=== PATIENT | female | born 1960 | race African-American/Black ===

== ENCOUNTER 2017-01-13 12:59 | Inpatient (IN) | payer MEDICARE ==
[2017-01-13] MEDS ORDERED: DUONEB 0.5 MG-3 MG/3 ML SOLN IH ONE (14:42)
[2017-01-13 15:32] LABS: Basophils % (Auto) 0.6 % (0.0-1.8); Eosinophils % (Auto) 4.2 % (0.0-4.3); Hematocrit 37.5 % (30.3-42.9); Hemoglobin 12.1 gm/dl (10.1-14.3); Mean Corpuscular HGB Conc 32 % (30-34); Mean Corpuscular Hemoglobin 27 pg (28-32); Mean Corpuscular Volume 84 fl (79-97); Platelet Count 154 K/mm3 (140-440); Red Blood Count 4.49 M/mm3 (3.65-5.03); Red Cell Distribution Width 14.7 % (13.2-15.2); White Blood Count 9.1 K/mm3 (4.5-11.0)
[2017-01-13 15:44] LABS: Anion Gap 17 mmol/L; BUN/Creatinine Ratio 23.33; Blood Urea Nitrogen 14 mg/dL (7-17); Calcium 9.1 mg/dL (8.4-10.2); Carbon Dioxide 27 mmol/L (22-30); Chloride 102.5 mmol/L (98-107); Glucose 118 mg/dL (65-100); Potassium 4.1 mmol/L (3.6-5.0); Sodium 142 mmol/L (137-145)
--- NOTE | 2017-01-13 15:57 | XRay Report ---
CHEST TWO VIEWS: 01/13/17 12:59:00 CLINICAL: Shortness of breath. COMPARISON: 04/23/16 FINDINGS: Cardiomegaly and central vascular congestion. Median sternotomy wires and a prosthetic mitral valve. Multilobar bilateral patchy airspace disease, greater on the right than the left. No pleural effusion. The bones and soft tissues are normal. IMPRESSION: Probable CHF with multilobar alveolar pulmonary edema.
[2017-01-13] MEDS ORDERED: PROVENTIL IH ONE (16:19)
[2017-01-13] MEDS ORDERED: ATROVENT IH ONE ×2 (17:41→17:45)
[2017-01-13] MEDS ORDERED: LASIX IV ONE (17:45)
[2017-01-13] MEDS ORDERED: MAGNESIUM SULFATE 2GM/50ML 2 GM/50 ML BAG IV ONE (17:45)
--- NOTE | 2017-01-13 17:51 | Emergency Department Report ---
ED Shortness of Breath HPI - General Chief Complaint: Dyspnea/Respdistress Stated Complaint: SOB Time Seen by Provider: 01/13/17 16:19 Source: patient, old records reviewed (echo 04/2016 EG 55-61%, diastolic dysfunction. Restricted mitral valve angioplasty with secondary severe mitral stenosis) Mode of arrival: Ambulatory Limitations: Language Barrier - History of Present Illness Initial Comments: 56 yo female with a past medical history of CHF, sleep apnea, hypertension, diabetes, status post mitral annular ring insertion presents to the hospital complains of shortness of breath 3 days. Patient recently returned from [place] via car ride yesterday. Patient has been experiencing wheezing, generalized chest tightness, dyspnea exertion, and cough Dr. of yellow/brown bloody sputum. Bilateral lower extremity edema reported without unilateral edema or arthritic calf tenderness. No reports of fever. 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 [facility] but patient has been evaluated by [facility] here in the past - Related Data Home Medications Medication Instructions Recorded Confirmed Last Taken Furosemide [Lasix TAB] 40 mg PO QDAY 07/19/13 02/21/15 1 Day Ago Potassium 10 meq PO QDAY 07/19/13 02/21/15 1 Day Ago Gabapentin 300 mg PO BID 02/21/15 02/21/15 1 Day Ago 10 units Lantus 10 units SQ QHS 02/21/15 02/21/15 1 Day Ago 10 Previous Rx's Medication Instructions Recorded Last Taken Type predniSONE [Deltasone] 20 mg PO QDAY #5 tab 11/27/15 Unknown Rx ALBUTEROL Inhaler [ProAir HFA 2 puff IH QID PRN #1 inhalation 03/31/16 Unknown Rx Inhaler] Albuterol *Only Ed* [Proventil 2.5 mg IH Q4H PRN #1 box 03/31/16 Unknown Rx 0.5% NEBS] predniSONE [Deltasone] 20 mg PO QDAY #5 tab 03/31/16 Unknown Rx Albuterol Sulfate [Proair 90 mcg IH Q4HR PRN #2 aer.pow.ba 04/23/16 Unknown Rx Respiclick] Benzonatate [Tessalon Perles] 100 mg PO Q8HR PRN #30 capsule 04/23/16 Unknown Rx Ipratropium [place] [Atrovent Hfa] 12.9 gm IH Q4HR #2 hfa.aer.ad 04/23/16 Unknown Rx predniSONE [Deltasone] 40 mg PO QDAY #8 tab 04/23/16 Unknown Rx Allergies Allergy/AdvReac Type Severity Reaction Status Date / Time seafood Allergy Rash Uncoded 04/23/16 07:03 ED Review of Systems ROS: Stated complaint: SOB Other details as noted in HPI Comment: All other systems reviewed and negative Other: Constitutional: No fevers chills Eyes: No eye pain visual changes ENT: No ear pain or throat pain Neck: Denies pain Respiratory: as per hpi Cardiovascular: Denies palpitations, syncope GI: Denies abdominal pain, nausea, vomiting, diarrhea : Denies dysuria Musculoskeletal: edema Skin: Denies rash, lesions, erythema Neurologic: Denies headache, numbness, weakness Psychiatric: Denies suicidal ideation, hallucinations ED Past Medical Hx - Past Medical History Hx Hypertension: Yes Hx Congestive Heart Failure: Yes Hx Diabetes: Yes Hx Psychiatric Treatment: Yes (PANIC/ANXIETY) Hx Asthma: Yes Additional medical history: Sleep apnea. mitral annular ring insertion 2011. echo 04/2016: EF 55-60%, diastolic dysfunction, severe left atrium dilatation Restricted mitral valve angioplasty with secondary severe mitral stenosis on - Surgical History Hx Open Heart Surgery: Yes Additional Surgical History: Patient states she had heart surgery but cannot explain exactly what type of surgery she had. She states they put something plastic inside of her called a "ling" but she does not know what it is - Social History Smoking Status: Never Smoker Substance Use Type: None - Medications Home Medications: Home Medications Medication Instructions Recorded Confirmed Last Taken Type Furosemide [Lasix TAB] 40 mg PO QDAY 07/19/13 02/21/15 1 Day Ago History Potassium 10 meq PO QDAY 07/19/13 02/21/15 1 Day Ago History Gabapentin 300 mg PO BID 02/21/15 02/21/15 1 Day Ago History 10 units Lantus 10 units SQ QHS 02/21/15 02/21/15 1 Day Ago History 10 predniSONE [Deltasone] 20 mg PO QDAY #5 tab 11/27/15 Unknown Rx ALBUTEROL Inhaler [ProAir HFA 2 puff IH QID PRN #1 inhalation 03/31/16 Unknown Rx Inhaler] Albuterol *Only Ed* [Proventil 2.5 mg IH Q4H PRN #1 box 03/31/16 Unknown Rx 0.5% NEBS] predniSONE [Deltasone] 20 mg PO QDAY #5 tab 03/31/16 Unknown Rx Albuterol Sulfate [Proair 90 mcg IH Q4HR PRN #2 aer.pow.ba 04/23/16 Unknown Rx Respiclick] Benzonatate [Tessalon Perles] 100 mg PO Q8HR PRN #30 capsule 04/23/16 Unknown Rx Ipratropium [place] [Atrovent Hfa] 12.9 gm IH Q4HR #2 hfa.aer.ad 04/23/16 Unknown Rx predniSONE [Deltasone] 40 mg PO QDAY #8 tab 04/23/16 Unknown Rx ED Physical Exam - General Limitations: Language Barrier - Other Other exam information: General: No limitations, patient is alert in no acute distress Head exam: Atraumatic, normocephalic Eyes exam: Normal appearance, pupils equal reactive to light, extraocular movements intact ENT: Moist mucous membrane Neck exam: Normal inspection, full range of motion, no meningismus nontender Respiratory exam: Significant bilateral expiratory wheezing, mild tachypnea, no sensory use, mild crackles Cardiovascular: Normal rate and rhythm, normal heart sounds Abdomen: Soft, nondistended, and nontender, with normal bowel sounds, no rebound, or guarding Extremity: Full range of motion, bilateral lower extremity edema 1+, no calf tendernes Back: Normal Inspection, full range of motion, no tenderness Neurologic: Alert, oriented x3, cranial nerves intact, no motor or sensory deficit Psychiatric: normal affect, normal mood Skin: Warm, dry, intact ED Course Vital Signs 01/13/17 01/13/17 01/13/17 14:39 15:07 15:20 Temperature 98.5 F Pulse Rate 84 Pulse Rate [ 84 Posterior Bilateral Throughout] Respiratory 22 Rate Respiratory 25 H 20 Rate [Posterior Bilateral Throughout] Blood Pressure 170/85 O2 Sat by Pulse 94 Oximetry 01/13/17 17:46 Temperature Pulse Rate Pulse Rate [ 78 Posterior Bilateral Throughout] Respiratory Rate Respiratory 20 Rate [Posterior Bilateral Throughout] Blood Pressure O2 Sat by Pulse Oximetry - Reevaluation(s) Reevaluation #1: 01/13/17 17:55 Patient will be treated for CHF and asthma exacerbation with Solu-Medrol, magnesium, Lasix, and eyes are treatments. Patient received a DuoNeb prior to my evaluation with minimal improvement ED Medical Decision Making - Lab Data Result diagrams: 01/13/17 15:01 01/13/17 15:01 Lab Results 01/13/17 01/13/17 01/13/17 Range/Units 15: 15: 15:01 WBC 9.1 (4.5-11.0) K/mm3 RBC 4.49 (3.65-5.03) M/mm3 Hgb 12.1 (10.1-14.3) gm/dl Hct 37.5 (30.3-42.9) % MCV 84 (79-97) fl MCH 27 L (28-32) pg MCHC 32 (30-34) % RDW 14.7 (13.2-15.2) % Plt Count 154 (140-440) K/mm3 Lymph % (Auto) 12.5 L (13.4-35.0) % [place] % (Auto) 5.9 (0.0-7.3) % Eos % (Auto) 4.2 (0.0-4.3) % Baso % (Auto) 0.6 (0.0-1.8) % Lymph # 1.1 L (1.2-5.4) K/mm3 [place] # 0.5 (0.0-0.8) K/mm3 Eos # 0.4 (0.0-0.4) K/mm3 Baso # 0.1 (0.0-0.1) K/mm3 Seg Neutrophils % 76.8 H (40.0-70.0) % Seg Neutrophils # 7.0 (1.8-7.7) K/mm3 Sodium 142 (137-145) mmol/L Potassium 4.1 (3.6-5.0) mmol/L Chloride 102.5 (98-107) mmol/L Carbon Dioxide 27 (22-30) mmol/L Anion Gap 17 mmol/L BUN 14 (7-17) mg/dL Creatinine 0.6 L (0.7-1.2) mg/dL Estimated GFR > 60 ml/min BUN/Creatinine Ratio 23.33 % Glucose 118 H (65-100) mg/dL Calcium 9.1 (8.4-10.2) mg/dL Troponin T < 0.010 (0.00-0.029) ng/mL NT-Pro-B Natriuret Pep 1119 H (0-900) pg/mL - EKG Data -: EKG Interpreted by Me (sinus with premature atrial complexes rate 75) - EKG Data When compared to previous EKG there are: no significant change (compared to 2015) - Radiology Data Radiology results: report reviewed (chest x-ray: Probable CHF with multilobar alveolar pulmonary edema) - Medical Decision Making Patient has wheezing and pulmonary edema. Will be treated for both CHF and asthma. Patient will require admission to the hospital for further cardiac workup and evaluation. Most recent echo 04/2016 showed a normal ejection fraction although diastolic dysfunction and severe mitral stenosis. BNP has also been normal in the past and elevated today. Findings today represent acute cardiac decompensation - Differential Diagnosis pneumonia, CHF, bronchitis, asthma, COPD, CHF, PE Critical Care Time: No Critical care attestation.: If time is entered above; I have spent that time in minutes in the direct care of this critically ill patient, excluding procedure time. ED Disposition Clinical Impression: Acute asthma exacerbation, Pulmonary edema, Hx of mitral valve repair, HTN ( hypertension), Diabetes Disposition: OP ADMITTED IP TO THIS HOSP Is pt being admited?: No Does the pt Need Aspirin: No Instructions: Pulmonary Edema (ED), Hypertension (ED), Diabetes Mellitus Type 2 in Adults (ED) Time of Disposition: 18:01 (Dr Jones/hosp)
--- NOTE | 2017-01-13 18:51 | History and Physical Report ---
History of Present Illness Chief complaint: Chest Pain History of present illness: 56 YO Female with HTN, CHF, DM, Asthma, HERMINIO, MVP S/P MVR, Anxiety presents to ED for evaluation. Pt states that she has experienced shortness of breath for the past 3 days with worsening symptoms over the past 12 hours as well as pain in her chest, 4/10, constant, worsened with deep breathing, nonradiating, not relieved with rest, or worsened with exertion, as well as productive cough. Pt acknowledges prolonged travel from [place] yesterday as well as bilateral leg swelling. Pt denies fever, chills, palpitations, NVD, syncope,hemoptysis, BRBPR , skin rashes, unintentional weight loss, night sweats, calf tenderness, or leg pain, individual/family history of DVT/PE. Past History Past Medical History: diabetes, heart failure, hypertension Past Surgical History: Other (MItral valve) Social history: , lives with family. denies: smoking, alcohol abuse, prescription drug abuse Family history: no significant family history (reviewed) Medications and Allergies Allergies Allergy/AdvReac Type Severity Reaction Status Date / Time seafood Allergy Rash Uncoded 04/23/16 07:03 Home Medications Medication Instructions Recorded Confirmed Last Taken Type Furosemide [Lasix TAB] 40 mg PO QDAY 07/19/13 01/14/17 1 Day Ago History Potassium 10 meq PO QDAY 07/19/13 01/14/17 1 Day Ago History Gabapentin 300 mg PO BID 02/21/15 01/14/17 1 Day Ago History Lantus 10 units SQ QHS 02/21/15 01/14/17 1 Day Ago History predniSONE [Deltasone] 20 mg PO QDAY #5 tab 11/27/15 01/14/17 1 Day Ago Rx ALBUTEROL Inhaler [ProAir HFA 2 puff IH QID PRN #1 inhalation 03/31/16 01/14/17 1 Day Ago Rx Inhaler] Albuterol *Only Ed* [Proventil 2.5 mg IH Q4H PRN #1 box 03/31/16 01/14/17 1 Day Ago Rx 0.5% NEBS] predniSONE [Deltasone] 20 mg PO QDAY #5 tab 03/31/16 01/14/17 1 Day Ago Rx Albuterol Sulfate [Proair 90 mcg IH Q4HR PRN #2 aer.pow.ba 04/23/16 01/14/17 1 Day Ago Rx Respiclick] Benzonatate [Tessalon Perles] 100 mg PO Q8HR PRN #30 capsule 04/23/16 01/14/17 1 Day Ago Rx Ipratropium [place] [Atrovent Hfa] 12.9 gm IH Q4HR #2 hfa.aer.ad 04/23/16 1 Day Ago Rx predniSONE [Deltasone] 40 mg PO QDAY #8 tab 04/23/16 01/14/17 1 Day Ago Rx Review of Systems All systems: negative Cardiovascular: chest pain Respiratory: cough, shortness of breath, pleurisy Exam - Constitutional Vitals: Temp Pulse Resp BP Pulse Ox 98.5 F 80 24 146/79 96 01/13/17 14:39 01/13/17 18:31 01/13/17 18:31 01/13/17 18:31 01/13/17 18:31 General appearance: Present: obese - EENT Eyes: Present: PERRL ENT: hearing intact, clear oral mucosa - Neck Neck: Present: supple, normal ROM - Respiratory Respiratory effort: normal Respiratory: bilateral: diminished - Cardiovascular Heart Sounds: Present: S1 & S2. Absent: rub, click - Extremities Extremities: pulses symmetrical, No edema Extremity abnormal: edema Peripheral Pulses: within normal limits - Abdominal General gastrointestinal: Present: soft, non-tender, non-distended, normal bowel sounds Female genitourinary: Present: normal - Integumentary Integumentary: Present: clear, warm, dry - Musculoskeletal Musculoskeletal: gait normal, strength equal bilaterally - Psychiatric Psychiatric: appropriate mood/affect, intact judgment & insight - Neurologic Neurologic: CNII-XII intact, moves all extremities Results - Labs CBC & Chem 7: 01/13/17 15:01 01/13/17 15:01 Labs: Abnormal lab results 01/13/17 01/13/17 01/13/17 Range/Units 15: 15: 15:01 MCH 27 L (28-32) pg Lymph % (Auto) 12.5 L (13.4-35.0) % Lymph # 1.1 L (1.2-5.4) K/mm3 Seg Neutrophils % 76.8 H (40.0-70.0) % Creatinine 0.6 L (0.7-1.2) mg/dL Glucose 118 H (65-100) mg/dL NT-Pro-B Natriuret Pep 1119 H (0-900) pg/mL Assessment and Plan - Patient Problems (1) ACS (acute coronary syndrome) Current Visit: Yes Status: Acute Plan to address problem: Chest Pain protocol: serial cardiac enzymes, ekg, telemetry, Cardiology consulted, (2) Accelerated hypertension Current Visit: Yes Status: Acute Plan to address problem: Monitor bp q shift, resume home medication. (3) CHF (congestive heart failure) Current Visit: Yes Status: Acute Qualifiers: Congestive heart failure type: C Congestive heart failure chronicity: C Plan to address problem: Cardilogy consulted, serial cardiac enzymes, ekg, telemetry supportive care. (4) Diabetes Current Visit: Yes Status: Acute Qualifiers: Diabetes mellitus type: D Diabetes mellitus complication status: D Diabetes mellitus complication detail: D Diabetic retinopathy severity: D Proliferative retinopathy type: P Diabetes mellitus macular edema: D Diabetes mellitus fdc insulin use: D Laterality: L Chronic kidney disease stage: C Plan to address problem: ADA diet, insulin, accu check (5) HERMINIO (obstructive sleep apnea) Current Visit: Yes Status: Acute Plan to address problem: CPAP as clinically indicated, (6) DVT prophylaxis Current Visit: Yes Status: Acute
--- NOTE | 2017-01-13 18:55 | Admit Criteria Form ---
Admission Criteria Documentation: CARDIOLOGY GRG Clinical Indications for Admission to Inpatient Care ( Place 'X' for any and all applicable criteria): Hospital admission is needed for appropriate care of the patient because of ANY ONE of the following (1): [ ] I. Hemodynamic instability as indicated by ALL of the following (1)(2)(3) (4)(5) [ ]a) Vital signs or other findings not as expected for chronic patient condition or baseline [ ]b) Instability indicated by ANY ONE of the following: [ ]i) Hypotension [ ]ii) Symptomatic Tachycardia unresponsive to treatment ( e.g., analgesia, fluids, sedation as indicated) [ ]iii) Inadequate perfusion indicated by ANY ONE of the following: [ ] 1) Lactic acidosis (> 2 mmol/L) [ ] 2) New abnormal capillary refill (> 3 seconds) [ ] 3) Reduced urine output [ ] 4) New altered mental status [ ]iv) Orthostatic vital sign changes unresponsive to treatment (e.g., fluids) [ ]v) IV inotropic or vasopressor medication required to maintain adequate blood pressure or perfusion [ ] II. Severe heart failure as indicated by ANY ONE of the following(17)(18) [ ]a) Respiratory distress [ ]b) Hypotension [ ]c) Anasarca (refractory to outpatient therapy) [ ]d) Cardiac arrhythmias of immediate concern [ ]e) Myocardial ischemia [ ] III. Cardiac arrhythmias or findings of immediate concern indicated by ANY ONE of the following (19)(20): [ ] a) Heart rhythms that are inherently dangerous or unstable indicated by ANY ONE of the following (21)(22)(23): [ ] i) Resuscitated ventricular fibrillation or cardiac arrest [ ] ii) Ventricular escape rhythm [ ] iii) Sustained ventricular tachycardia (30 seconds or more of ventricular rhythm at greater than 100 beats per minute) [ ] iv) Nonsustained ventricular tachycardia and ANY ONE of the following: [ ] 1) Suspected cardiac ischemia as cause or consequence of ventricular tachycardia [ ] 2) In setting of acute myocarditis [ ] b) Unstable cardiac conduction defects indicated by ANY ONE of the following(23)(24)(25) [ ] i) Type II second-degree atrioventricular block [ ]ii) Third-degree atrioventricular block [ ]iii) New-onset left bundle branch block with suspected myocardial ischemia [ ]c) Any heart rhythm and ANY ONE of the following (21)(22)(26)(27) (28) [ ] i) Continuous long-term ECG monitoring needed (e.g., initiation of drug requiring monitoring for more than 24 hours) [ ] ii) Patient has automatic implanted cardioverter defibrillator that is repeatedly firing, malfunctioning, or in need of immediate adjustment of settings beyond the scope of ambulatory or observation care [ ]d) Heart rhythms of concern due to ANY ONE of the following: [ ] i) Hypotension [ ] ii) Respiratory distress [ ] iii) Association with other significant symptoms (e.g., bradycardia with syncope or ongoing dizziness, supraventricular tachycardia with chest pain (14)(15)(17) [ ] IV. Monitoring for cardiac contusion beyond the scope of observation care needed [A](30)(31)(32) [ ] V. Surgical or device complication (e.g., valve replacement complication , pacemaker dysfunction) (35)(41)(44)(45)(46) [ ] . Inpatient palliative care needed. [B](49) Also use Inpatient Palliative Care Criteria [ ] VII. Nonbacterial thrombotic (marantic) endocarditis (36)(43)(47)(48) [X ] VIII. Cardiology condition, symptom, or finding for which emergency and observation care has failed or are not considered appropriate. [ ] IX. Acute valvular disease requiring inpatient as indicated by ANY ONE of the following (41) [ ]a) Acute valvular regurgitation (42) [ ]b) Noninfectious valvulitis (43) [ ]c) Obstructive valve thrombosis [ ]d) Paravalvular leak [ ]e) Other significant valvular disorder remaining after emergency or observation level of care (as appropriate) [ ]X. Pericardial disease requiring inpatient treatment as indicated by ANY ONE of the following (33)(34)(35)(36)(37) [ ]a) Suspected tamponade (38)(39)(40) [ ]b) Hemopericardium [ ]c) Other significant pericardial disorder remaining after emergency or observation level of care (as appropriate) [ ] XI. Cardiac ischemia beyond scope of emergency and observation care. [ ] XII. Hypertension requiring inpatient treatment as indicated by ANY ONE of the following (6)(7)(8) [ ]a) SBP greater than 220 mm Hg or DBP greater than 120 mmHg despite treatment [ ]b) SBP greater than 140 mm Hg or DBP greater than 100 mm Hg with evidence of acute end organ damage as indicated by ANY ONE of the following [ ] i) Altered mental status [ ] ii) Acute renal failure as indicated by new onset of ANY ONE of the following (9)(10)(11)(12)(13) [ ]1) 3-fold rise in serum creatinine from baseline [ ]2) Serum creatinine greater than 4 mg/dL ( 354 micromoles/L) with acute rise greater than 0.5 mg/dL (44.2 micromoles/L) [ ]3) Reduction of more than 75% in estimated glomerular filtration rate from baseline [ ]4) Estimated glomerular filtration rate less than 35 mL/min/1.73m2 (0.59 mL/sec/1.73m2) in child up to 18 years of age [ ]5) Cessation of urine output indicated by ALL of the following [ ]A. Adequate volume status [ ]B. Inadequate urine output as indicated by ANY ONE of the following [ ]a. Urine output less than 0.3 mL/kg/hr for 24 hours [ ]b. Anuria (urine output less than 0.1 mL/kg/hr) for 12 hours [ ] iii) Aortic dissection [ ] iv) Myocardial Ischemia [ ] v) Left ventricular heart failure [ ]vi) Retinal Hemorrhage [ ]vii) Other significant finding [ ]c) Hypertension in child requiring inpatient treatment as indicated by ALL of the following(14)(15)(16) [ ] i) Outpatient treatment not effective, not available, or not appropriate [ ]ii) SBP or DBP greater than 95th percentile for age [ ]iii) Evidence of acute end organ damage as indicated by ANY ONE of the following [ ]1) Altered mental status [ ]2) Acute renal failure as indicated by new onset of ANY ONE of the following(9)(10)(11)(12)(13) [ ]A. 3-fold rise in serum creatinine from baseline [ ]B. Serum creatinine greater than 4 mg/dL (354 micromoles/L) with acute rise greater than 0.5 mg/dL (44.2 micromoles/L) [ ]C. Reduction of more than 75% in estimated glomerular filtration rate from baseline [ ]D. Estimated glomerular filtration rate less than 35 mL/min/1.73m2 (0.59 mL/sec/1.73m2) in child up to 18 years of age [ ]E. Cessation of urine output indicated by ALL of the following [ ]a. Adequate volume status [ ]b. Inadequate urine output as indicated by ANY ONE of the following [ ]i) Urine output less than 0.3 mL/kg/hr for 24 hours [ ]ii) Anuria ( urine output less than 0.1 mL/kg/hr) for 12 hours [ ]3) Severe headache [ ]4) Visual disturbance [ ]5) Retinal hemorrhage [ ]6) Other significant finding [ ]XIII. Complications of transplanted heart indicated by ANY ONE of the following(61): [ ]a) Acute graft rejection requiring inpatient management (eg, intravenous immunosuppression)(62)(63) [ ]b) Acute graft heart failure indicated by ANY ONE of the following(64): [ ]i) Hemodynamic instability [ ]ii) Cardiac arrhythmias of immediate concern [ ]iii) Pulmonary edema that is very severe (eg, mechanical ventilation needed, imminent or likely, need for 100% oxygen to keep oxygen saturation above 90%) [ ]iv) Pulmonary edema that is persistent as indicated by ALL of the following: [ ]1) New need for oxygen therapy to keep oxygen saturation above 90% (or increased FiO2 need from baseline) [ ]2) Has not improved sufficiently with emergency department or observation care IV diuretics or other heart failure treatments[E] [ ]v) Altered mental status that is severe or persistent [ ]vi) Increased creatinine (new on laboratory test) with reduction of more than 50% in estimated glomerular filtration rate from baseline [ ]vii) Progressively (ongoing) rising creatinine (known from past laboratory test) with reduction of more than 25% in estimated glomerular filtration rate from baseline [ ]viii) Acute renal failure [ ]ix) Acute peripheral ischemia (eg, examination shows pulseless, cool, mottled, or cyanotic extremity) [ ]x) Pulmonary artery catheter monitoring needed [ ]xi) Other sign or symptom of heart failure requiring inpatient treatment (ie, too severe or not responsive to outpatient and observation care treatment) [ ]c) Infection requiring inpatient management (eg, Hemodynamic instability, need for intravenous antimicrobial treatment)(66)(67)(68)(69)(70) [ ]d) Cardiac allograft vasculopathy requiring inpatient management ( eg evidence of cardiac ischemia)(71) [ ]e) Other complication of transplanted heart (eg, stroke, severe pulmonary hypertension, severe valvular dysfunction) requiring inpatient management(72) The original [facility] content created by [facility] has been revised. The portions of the content which have been revised are identified through the use of italic text or in bold, and [facility] has neither reviewed nor approved the modified material. All other unmodified content is copyright [facility] [employer]. Please see references footnoted in the original [facility] [employer] edition 2016 Admission Criteria Met: Yes
[2017-01-13] MEDS ORDERED: DULCOLAX PR PRN (20:19)
[2017-01-13] MEDS ORDERED: MILK OF MAGNESIA PO PRN (20:19)
[2017-01-13] MEDS ORDERED: ZOFRAN IV PRN (20:19)
[2017-01-13] MEDS ORDERED: TYLENOL PO PRN (20:19)
[2017-01-13] MEDS ORDERED: DUONEB 0.5 MG-3 MG/3 ML SOLN IH PRN (20:19)
[2017-01-13] MEDS ORDERED: SODIUM CHLORIDE FLUSH SYRINGE 10 ML IV PRN (20:25)
[2017-01-13] MEDS ORDERED: PROVENTIL IH PRN (20:32)
[2017-01-13] MEDS ORDERED: NON-FORMULARY (Albuterol Sulfate [Proair Respiclick] 90 MCG) IH PRN (20:36)
[2017-01-13] MEDS ORDERED: TESSALON PERLES PO PRN (20:36)
[2017-01-13] MEDS ORDERED: PROAIR IH PRN (20:36)
[2017-01-13] MEDS ORDERED: NON-FORMULARY (Ipratropium Bromide [Atrovent Hfa] 12.9 GM) IH SCH (22:00)
[2017-01-13] MEDS ORDERED: LEVEMIR SUB-Q SCH (22:00)
[2017-01-13] MEDS ORDERED: LANTUS 10 UNIT SQ SCH (22:00)
[2017-01-13 22:05] LABS: Creatine Kinase MB 3.9 ng/mL (0.0-4.0)
[2017-01-13 22:06] LABS: Creatine Kinase 253 units/L (30-135)
[2017-01-14] MEDS: NEURONTIN PO SCH ×3 (00:26→23:43)
[2017-01-14 00:36] LABS: Creatine Kinase MB 3.4 ng/mL (0.0-4.0)
[2017-01-14 00:37] LABS: Creatine Kinase 228 units/L (30-135)
[2017-01-14] MEDS: LASIX IV SCH ×2 (05:29→17:31)
[2017-01-14 06:50] LABS: Creatine Kinase MB 3.7 ng/mL (0.0-4.0)
[2017-01-14 06:51] LABS: Creatine Kinase 200 units/L (30-135)
[2017-01-14] MEDS ORDERED: LEVEMIR SUB-Q SCH ×2 (09:21→22:00)
[2017-01-14] MEDS: ATROVENT IH SCH ×3 (09:22→20:17)
[2017-01-14] MEDS ORDERED: POTASSIUM 10 MEQ PO SCH (10:00)
[2017-01-14] MEDS: DELTASONE PO SCH (10:02)
[2017-01-14] MEDS: K-DUR PO SCH (10:03)
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
[2017-01-15] MEDS: LASIX IV SCH (06:25)
[2017-01-15 07:35] VITALS: BP 130/77
[2017-01-15] MEDS: ATROVENT IH SCH (09:55)
--- NOTE | 2017-01-15 10:59 | Progress Note ---
Assessment and Plan Shortness of breath, multifactorial CHF exacerbation - resolved with a preserved EF 55-60% on echo 04/2016 Prior MV repair at [place] 2011 ? restrictive annuloplasty on echo 2012 and 2015. [facility] 2011: normal coronaries Asthma Hypertension DM Recommendations: Awaiting repeat echo to evaluate mitral valve and rule out restrictive annuloplasty Clinically patient appears euvolemic Switch IV lasix to po Subjective Date of service: 01/15/17 Principal diagnosis: CHF Interval history: Patient is feeling much better this morning. Her shortness of breath has resolved. Objective Vital Signs Temp Pulse Pulse Pulse Pulse Pulse Pulse 01/15/17 09:56 01/15/17 09:55 70 70 01/15/17 07:34 97.4 F L 69 01/15/17 04:49 97.6 F 68 01/15/17 01:25 64 01/15/17 00:26 98.0 F 72 01/14/17 20:48 98.2 F 82 01/14/17 20:15 81 01/14/17 20:10 01/14/17 20:05 83 01/14/17 18:07 78 01/14/17 17:01 78 01/14/17 14:15 81 01/14/17 14:03 82 01/14/17 14:00 81 Resp Resp Resp Resp BP Pulse Ox 01/15/17 09:56 98 01/15/17 09:55 18 18 01/15/17 07:34 18 130/77 96 01/15/17 04:49 18 116/73 96 01/15/17 01:25 22 96 01/15/17 00:26 20 132/69 95 01/14/17 20:48 20 138/70 96 01/14/17 20:15 18 01/14/17 20:10 97 01/14/17 20:05 20 01/14/17 18:07 127/70 01/14/17 17:01 16 127/70 99 01/14/17 14:15 18 01/14/17 14:03 161/69 01/14/17 14:00 17 - Physical Examination HEENT: Positive: PERRL Neck: Positive: trachea midline Cardiac: Positive: Reg Rate and Rhythm Lungs: Positive: Normal Exam Neuro: Positive: Grossly Intact - EKG Sinus rhythms and dysrhythmias: sinus rhythm
[2017-01-15] MEDS: NEURONTIN PO SCH (11:00)
[2017-01-15] MEDS: DELTASONE PO SCH (11:01)
[2017-01-15] MEDS: K-DUR PO SCH (11:05)
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
--- NOTE | 2017-01-15 13:32 | Emergency Department Report ---
Entered by GHASSAN GIBBONS, acting as scribe for VILMA ORTIZ PA. Chief Complaint: Dyspnea/Respdistress Stated Complaint: SOB Time Seen by Provider: 01/13/17 16:09 - HPI History of Present Illness: 56 y/o female with Hx of asthma presents c/o SOB that started 2 days ago. Sx include chills, fever, productive cough, and coughing with blood. Meds include daily inhaler and albuterol. Pt notes seasonal allergies. - ROS Review of Systems: as noted in HPI - Exam Vital Signs: Vital Signs 01/13/17 01/13/17 14:39 15:07 Temperature 98.5 F Pulse Rate 84 Pulse Rate [ 84 Posterior Bilateral Throughout] Respiratory 22 Rate Respiratory 25 H Rate [Posterior Bilateral Throughout] Blood Pressure 170/85 O2 Sat by Pulse 94 Oximetry Physical Exam: General: 56-year-old female in no acute distress. Well-developed, well- nourished. CV: Regular rate and rhythm. No murmurs rubs or gallops. Lungs: inpspiratory and expiratory wheezing Abdomen: No tenderness to palpation. No guarding or rebound tenderness. Normal bowel sounds. Mini Neuro: Alert and oriented 3. MSE screening note: Focused history and physical exam performed. Due to findings the following was ordered: ED Medical Decision Making - Lab Data Result diagrams: 01/13/17 15:01 01/13/17 15:01 ED Disposition for MSE Condition: Stable This documentation as recorded by the scribe,GHASSAN GIBBONS,accurately reflects the service I personally performed and the decisions made by me,VILAM ORTIZ PA.
[2017-01-16] MEDS ORDERED: LASIX PO SCH (10:00)
== END 2017-01-15 13:42 | disposition home or self-care (01) | DRG 291 ==
LOC: ED 12:59 → 4A 20:19
PROVIDERS: ADMIT Internal Medicine; ATTEND Internal Medicine
DX: I11.0 Hypertensive heart disease with heart failure (principal); J96.20 Acute and chronic respiratory failure, unspecified whether with hypoxia or hypercapnia; I24.9 Acute ischemic heart disease, unspecified; J45.901 Unspecified asthma with (acute) exacerbation; J81.1 Chronic pulmonary edema; I50.33 Acute on chronic diastolic (congestive) heart failure; Z98.890 Other specified postprocedural states; E11.9 Type 2 diabetes mellitus without complications; G47.33 Obstructive sleep apnea (adult) (pediatric); I16.0 Hypertensive urgency; Z79.4 Long term (current) use of insulin; Z91.013 Allergy to seafood; F41.9 Anxiety disorder, unspecified; I05.2 Rheumatic mitral stenosis with insufficiency
CPT/HCPCS: 36415; 71020; 80048; 82550; 82553; 82962; 83880; 84484; 85025; 85379; 93005; 93010; 93306; 94640; 94660; 96365; 96375; J1818; J1940; J2930; J3475; J7512

== ENCOUNTER 2017-01-21 18:31 | Emergency (ER) | payer MEDICARE ==
[2017-01-21 18:39] VITALS: BP 129/59
[2017-01-21 19:20] LABS: Basophils % (Auto) 0.9 % (0.0-1.8); Eosinophils % (Auto) 6.7 % (0.0-4.3); Hematocrit 38.4 % (30.3-42.9); Hemoglobin 12.4 gm/dl (10.1-14.3); Mean Corpuscular HGB Conc 32 % (30-34); Mean Corpuscular Hemoglobin 27 pg (28-32); Mean Corpuscular Volume 84 fl (79-97); Platelet Count 179 K/mm3 (140-440); Red Blood Count 4.57 M/mm3 (3.65-5.03); Red Cell Distribution Width 14.6 % (13.2-15.2); White Blood Count 8.1 K/mm3 (4.5-11.0)
[2017-01-21 19:44] LABS: Anion Gap 15 mmol/L; Blood Urea Nitrogen 16 mg/dL (7-17); Calcium 9.1 mg/dL (8.4-10.2); Carbon Dioxide 28 mmol/L (22-30); Chloride 99.9 mmol/L (98-107); Glucose 292 mg/dL (65-100); Potassium 4.1 mmol/L (3.6-5.0); Sodium 139 mmol/L (137-145)
--- NOTE | 2017-01-22 07:29 | XRay Report ---
PA and lateral chest: Shortness of breath. The cardiac contour is slightly enlarged. There is a prosthetic mitral valve. There is mild vascular congestion slightly worse on the right than left. No infiltrates. The vascular pattern is slightly improved compared to the prior study of January 13. Impression: Mild CHF.
--- NOTE | 2017-01-23 19:57 | ED Elopement Review ---
ED Pt Elopement review - Results review Lab results: Laboratory Tests 01/21/17 01/21/17 01/21/17 18:50 18:50 18:56 WBC 8.1 RBC 4.57 Hgb 12.4 Hct 38.4 MCV 84 MCH 27 L MCHC 32 RDW 14.6 Plt Count 179 Lymph % (Auto) 21.3 [place] % (Auto) 6.8 Eos % (Auto) 6.7 H Baso % (Auto) 0.9 Lymph # 1.7 [place] # 0.5 Eos # 0.5 H Baso # 0.1 Seg Neutrophils % 64.3 Seg Neutrophils # 5.2 Potassium 4.1 Chloride 99.9 Carbon Dioxide 28 Anion Gap 15 BUN 16 Creatinine 0.8 Estimated GFR > 60 BUN/Creatinine Ratio 20.00 Glucose 292 H Calcium 9.1 Troponin T < 0.010 NT-Pro-B Natriuret Pep 368.1 - Call Back decision Pt Call Back Decision: No action required
== END 2017-01-22 03:04 | disposition left against medical advice (07) ==
LOC: ED 18:31
DX: R06.02 Shortness of breath (principal); Z53.21 Procedure and treatment not carried out due to patient leaving prior to being seen by health care provider
CPT/HCPCS: 36415; 71020; 80048; 83880; 84484; 85025; 93005; 93010

== ENCOUNTER 2017-01-27 07:36 | Day surgery (SDC) | payer MEDICARE ==
[2017-01-27] MEDS ORDERED: ECOTRIN PO ONE (08:03)
[2017-01-27 08:44] LABS: Basophils % (Auto) 0.8 % (0.0-1.8); Eosinophils % (Auto) 5.9 % (0.0-4.3); Hematocrit 37.2 % (30.3-42.9); Hemoglobin 12.2 gm/dl (10.1-14.3); Mean Corpuscular HGB Conc 33 % (30-34); Mean Corpuscular Hemoglobin 27 pg (28-32); Mean Corpuscular Volume 83 fl (79-97); Platelet Count 157 K/mm3 (140-440); Red Blood Count 4.49 M/mm3 (3.65-5.03); Red Cell Distribution Width 14.5 % (13.2-15.2); White Blood Count 7.8 K/mm3 (4.5-11.0)
[2017-01-27 08:59] LABS: INR 1.04 (0.87-1.13)
[2017-01-27] MEDS ORDERED: NACL 0.9% 500 ML 500 ML IV SCH (09:00)
[2017-01-27 09:05] LABS: Anion Gap 16 mmol/L; BUN/Creatinine Ratio 28.33; Blood Urea Nitrogen 17 mg/dL (7-17); Calcium 9.3 mg/dL (8.4-10.2); Carbon Dioxide 29 mmol/L (22-30); Glucose 116 mg/dL (65-100); Sodium 141 mmol/L (137-145)
[2017-01-27] MEDS ORDERED: BENADRYL IV ONE (09:30)
[2017-01-27] MEDS ORDERED: LASIX IV ONE (09:30)
[2017-01-27] MEDS ORDERED: HEPARIN/NS 5000 UNIT/500ML(CATH LAB) 1,500 ML IR ONE (11:06)
[2017-01-27] MEDS: VERSED ONE ×2 (11:33→11:52)
[2017-01-27] MEDS: XYLOCAINE 2% INFILTRATI ONE ×2 (11:33→11:53)
[2017-01-27] MEDS: SUBLIMAZE ONE ×2 (11:33→11:52)
--- NOTE | 2017-01-27 13:10 | Discharge Summary ---
Short Stay Discharge Plan Activity: advance as tolerated Weight Bearing Status: Partial Weight Bearing Diet: low fat, low cholesterol, low salt, diabetic Wound: keep clean and dry Special Instructions: no heavy lifting (3 days) Follow up with: ANDRÉS LARA MD [Primary Care Provider] - 7 Days JOSE CURTIS MD [Staff Physician] - 7 Days
[2017-01-27] MEDS ORDERED: NACL 0.9% 1000 ML 1,000 ML IV SCH (14:00)
--- NOTE | 2017-01-27 15:29 | Cardiac Catherization Report ---
CARDIAC CATHETERIZATION REPORT REASON FOR PROCEDURE: The patient is a 56-year-old woman who previously underwent mitral valve repair for mitral stenosis 4 years ago. She presents with symptoms of progressive heart failure, and echocardiographic evidence of mitral restenosis. The right and left heart catheterization was recommended. PROCEDURE PERFORMED: 1. Right and left heart catheterization. 2. [place] catheterization with hemodynamic assessments. PROCEDURE: The patient was prepped and draped in a sterile fashion after informed consent. The right femoral artery and vein were entered using Seldinger technique. A 6-[place] sheath in the artery and an 8 [place] sheath in the vein. [place]al catheterization was then performed, with the swan advanced to the pulmonary artery position. A pigtail catheter was then advanced into the left ventricle. Simultaneous left ventricular end diastolic and pulmonary artery wedge pressures were measured. Cardiac output was measured using the thermodilution method. The [place] catheter was then withdrawn and pressures were measured in the right heart on pullback. Left ventricular angiography was then performed, following which the pigtail catheter was withdrawn across the aortic valve and transaortic pressures were measured. Finally, left and right coronary angiography was performed using #4 right and left Aleks catheters. The catheters were then withdrawn, sheath removed, and hemostasis achieved, the arterial position using an Angio-Seal device. Manual compression was used over the venous site. The procedure was well tolerated by the patient and no complications. She was returned to the post-procedure unit in stable condition. FINDINGS: HEMODYNAMICS: The mean right atrial pressure was 15. Right ventricular pressure was 60/18. Pulmonary artery pressure was 60/30. The mean pulmonary artery wedge pressure was 30. Left ventricular end-diastolic pressure was 25. Cardiac output was 4.5 liters per minute by thermodilution. Ascending aortic pressure was 148/75. There was no significant pressure gradient on pullback across the aortic valve. MITRAL STENOSIS: Simultaneous left ventricular end diastolic and pulmonary artery wedge pressures revealed a mean transmitral gradient of 16 mmHg. Using the Gorlin equation, the mitral valve area was calculated at 0.96 square cm. CORONARY ANGIOGRAPHY: The left main, left anterior descending and diagonal branches were angiographically normal. The circumflex artery consists of single obtuse marginal branch, which was angiographically normal. This right coronary artery was a large dominant system, also angiographically normal. There was well preserved left ventricular systolic function, ejection fraction 50%-55%. CONCLUSION: 1. Moderate elevation of the right and left heart filling pressures, moderate to severe pulmonary hypertension. 2. Severe mitral stenosis with a transmitral mean gradient of 16, mitral valve area 0.96 square cm. 3. Angiographically normal coronary arteries. 4. Well preserved left ventricular systolic function, ejection fraction of 50% to 55%. RECOMMENDATIONS: Mitral valve replacement surgery is recommended. [facility]# [id number] CA/NTS
[2017-01-27 15:39] VITALS: BP 108/66
== END 2017-01-27 16:35 | disposition home or self-care (01) ==
LOC: OPU 07:36
PROVIDERS: ATTEND Internal Medicine Cardiovascular Disease
DX: I05.0 Rheumatic mitral stenosis (principal); I27.2 Other secondary pulmonary hypertension; D64.9 Anemia, unspecified; F41.9 Anxiety disorder, unspecified; M15.9 Polyosteoarthritis, unspecified; J45.909 Unspecified asthma, uncomplicated; I10 Essential (primary) hypertension; E11.9 Type 2 diabetes mellitus without complications; Z85.828 Personal history of other malignant neoplasm of skin; Z79.01 Long term (current) use of anticoagulants
CPT/HCPCS: 36415; 80048; 82962; 85025; 85610; 85730; 93005; 93010; 93460; 96374; 96375; C1760; C1894; J1200; J1644; J1720; J1940; J2250; J3010; J7040; Q9967

== ENCOUNTER 2017-02-07 08:36 | Emergency (ER) | payer MEDICARE ==
[2017-02-07] MEDS ORDERED: DUONEB 0.5 MG-3 MG/3 ML SOLN IH ONE ×2 (09:21→09:46)
[2017-02-07 09:32] LABS: Basophils % (Auto) 0.9 % (0.0-1.8); Eosinophils % (Auto) 9.6 % (0.0-4.3); Hematocrit 37.9 % (30.3-42.9); Hemoglobin 12.2 gm/dl (10.1-14.3); Mean Corpuscular HGB Conc 32 % (30-34); Mean Corpuscular Hemoglobin 27 pg (28-32); Mean Corpuscular Volume 85 fl (79-97); Platelet Count 190 K/mm3 (140-440); Red Blood Count 4.47 M/mm3 (3.65-5.03); Red Cell Distribution Width 14.4 % (13.2-15.2); White Blood Count 7.5 K/mm3 (4.5-11.0)
[2017-02-07 10:17] LABS: Anion Gap 19 mmol/L; BUN/Creatinine Ratio 26.66; Blood Urea Nitrogen 16 mg/dL (7-17); Calcium 9.3 mg/dL (8.4-10.2); Carbon Dioxide 26 mmol/L (22-30); Chloride 101.5 mmol/L (98-107); Glucose 189 mg/dL (65-100); Potassium 4.7 mmol/L (3.6-5.0); Sodium 142 mmol/L (137-145)
--- NOTE | 2017-02-07 10:34 | XRay Report ---
PA and lateral chest: SOB. The patient has had mitral valve replacement. The heart is slightly enlarged. No current vascular congestion identified. The vascular pattern appears improved compared to prior study of January 21. No infiltrates nor nodules identified. Impression: Interval resolution of CHF. No acute cardiopulmonary disease.
[2017-02-07] MEDS ORDERED: TYLENOL/CODEINE PO ONE (12:43)
--- NOTE | 2017-02-07 12:43 | Emergency Department Report ---
HPI - General Chief Complaint: Adult Asthma Time Seen by Provider: 02/07/17 12:38 - HPI HPI: She is a 56-year-old female who history of asthma who presents to ED complaining of coughing times.. Patient states coughing has gotten progressively worse since then. Patient states cough aggravated asthma attack and today she began wheezing and had some difficulty with breathing. Patient states she has albuterol inhaler and nebulizers at home. She denies chest pain, fever, nausea, vomiting, abdominal pain, dizziness, blurry vision, headache, shortness of breath ED Past Medical Hx - Past Medical History Previous Medical History?: Yes Hx Hypertension: Yes Hx Congestive Heart Failure: Yes Hx Diabetes: Yes Hx GERD: Yes Hx Psychiatric Treatment: Yes (PANIC/ANXIETY) Hx Asthma: Yes Hx COPD: No Additional medical history: Sleep apnea. mitral annular ring insertion 2011. echo 04/2016: EF 55-60%, diastolic dysfunction, severe left atrium dilatation Restricted mitral valve angioplasty with secondary severe mitral stenosis on - Surgical History Hx Open Heart Surgery: Yes Additional Surgical History: Patient states she had heart surgery but cannot explain exactly what type of surgery she had. She states they put something plastic inside of her called a "ling" but she does not know what it is - Social History Smoking Status: Never Smoker Substance Use Type: None - Medications Home Medications: Home Medications Medication Instructions Recorded Confirmed Last Taken Type Lantus 15 units SQ QHS 02/21/15 01/27/17 01/26/17 History 15units ALBUTEROL Inhaler [ProAir HFA 2 puff IH QID PRN #1 inhalation 03/31/16 01/27/17 01/27/17 08:15 Rx Inhaler] Albuterol Sulfate [Proair Hfa] 2 puff INHALATION Q4HR PRN 01/27/17 01/27/17 History Aspirin EC [Aspirin Enteric Coated 81 mg PO DAILY 01/27/17 01/27/17 01/27/17 History TAB] Fluticasone [Flonase] 1 spray NS QDAY 01/27/17 01/27/17 01/26/17 History Furosemide 40 mg PO DAILY 01/27/17 01/27/17 01/26/17 History Insulin Glargine,Hum.rec.anlog 25 units SQ QAM 01/27/17 01/27/1701/27/17 06:00 History [Lantus Solostar] 12.5units Lisinopril 10 mg PO DAILY 01/27/17 01/27/17 01/26/17 History Oxybutynin Chloride [Oxybutynin 5 mg PO BID 01/27/17 01/27/17 01/26/17 History Chloride ER] Paroxetine HCl 10 mg PO DAILY 01/27/17 01/27/17 01/26/17 History Potassium Chloride [Klor-Con M10] 10 meq PO DAILY 01/27/17 01/27/17 01/26/17 History Ranitidine HCl [Zantac 150 MG TAB] 150 mg PO BID 01/27/17 01/27/17 01/26/17 History glipiZIDE [Glipizide] 10 mg PO BID 01/27/17 01/27/17 01/26/17 History ALBUTEROL Inhaler [ProAir HFA 2 puff IH QID PRN #1 inhalation 02/07/17 Unknown Rx Inhaler] Acetaminophen/Codeine [Tylenol 1 tab PO Q6H PRN #14 tab 02/07/17 Unknown Rx /Codeine # 3 tab] Benzonatate [Tessalon Perles] 100 mg PO Q8HR #21 capsule 02/07/17 Unknown Rx Prednisone [predniSONE 10 mg 10 mg PO .TAPER #1 tab.ds.pk 02/07/17 Unknown Rx (6-Day Pack, 21 Tabs)] ED Review of Systems ROS: Stated complaint: SHARP PAIN ON BACK OF BOTH LEGS Other details as noted in HPI Constitutional: denies: chills, fever Eyes: denies: eye pain, eye discharge, vision change ENT: denies: ear pain, throat pain Respiratory: denies: cough, shortness of breath, wheezing Cardiovascular: denies: chest pain, palpitations Endocrine: no symptoms reported Gastrointestinal: denies: abdominal pain, nausea, diarrhea Genitourinary: denies: urgency, dysuria, discharge Musculoskeletal: denies: back pain, joint swelling, arthralgia Skin: denies: rash, lesions Neurological: denies: headache, weakness, paresthesias Psychiatric: denies: anxiety, depression Hematological/Lymphatic: denies: easy bleeding, easy bruising Physical Exam - Physical Exam Vital Signs: Vital Signs 02/07/17 09:02 Temperature 98.3 F Pulse Rate 79 Blood Pressure 158/94 O2 Sat by Pulse 100 Oximetry Physical Exam: GENERAL: Alert and oriented x3, no apparent distress, Normal Gait, atraumatic. HEAD: Head is normocephalic and a-traumatic. NOSE: Nose symetrical, Nontender,Nares appeared normal. MOUTH:Mouth is well hydrated and without lesions. Tonsils nonerythematous or swollen, Uvula midline, Tongue not elevated. Mucous membranes are moist. Posterior pharynx clear, no exudate or lesions. Patent airways. LUNGS: Symetrical with respiration, anterior and posterior wheezing bilat, no rales or crackles, adventitious lung sounds. No use of accessory muscles moving here appropriately. HEART: S1, S2 present, regular rate and rhythm without murmur, no rubs, no rales, no gallops. ABDOMEN: No organomegaly was noted,Positive bowel sounds, soft, and non- distended. . Nontender to palpation on all Quadrants, NO CVA tenderness. EXTREMITIES/MUSCULOSKELETAL: No cyanosis, clubbing, rash, lesions or edema. Full ROM bilaterally. NEUROLOGIC: The patient is cooperative with no focal neurologic deficits. Cranial nerves II through XII are grossly intact. Normal speech. SKIN: Warm and dry, No lesions, No ulceration or induration present. ED Course Vital Signs 02/07/17 09:02 Temperature 98.3 F Pulse Rate 79 Blood Pressure 158/94 O2 Sat by Pulse 100 Oximetry ED Medical Decision Making - Lab Data Result diagrams: 02/07/17 09:17 02/07/17 09:17 - Radiology Data Radiology results: report reviewed, image reviewed Fluoro Time In Minutes: PA and lateral chest: SOB. The patient has had mitral valve replacement. The heart is slightly enlarged. No current vascular congestion identified. The vascular pattern appears improved compared to prior study of January 21. No infiltrates nor nodules identified. Impression: Interval resolution of CHF. No acute cardiopulmonary disease. Transcribed By: BRUNO Dictated By: JOSEPH CEJA MD Electronically Authenticated By: JOSEPH CEJA MD Signed Date/Time: 02/07/17 1019 - Medical Decision Making 56-year-old female presents to ED with asthma exacerbation ED course: CBC, CMP within normal limits. Chest x-ray-see above Patient received DuoNeb respiratory treatment triage. Patient received Solu- Medrol and Tylenol with codeine in ED. Patient reports feeling much better. Discussed the patient to follow up with her primary care physician. Vital signs are normal patient is in no acute or respiratory distress Patient is alert and oriented 3 understands instructions regarding getting an compliance to follow-up Discussed with patient if new symptoms arise to return to ED if signs discuss the take medication as prescribed Critical care attestation.: If time is entered above; I have spent that time in minutes in the direct care of this critically ill patient, excluding procedure time. ED Disposition Clinical Impression: Asthma exacerbation Disposition: DISCHARGED TO HOME OR SELFCARE Is pt being admited?: No Does the pt Need Aspirin: No Condition: Stable Instructions: Asthma (ED) Prescriptions: Acetaminophen/Codeine [Tylenol /Codeine # 3 tab] 1 tab PO Q6H PRN #14 tab PRN Reason: Pain ALBUTEROL Inhaler [ProAir HFA Inhaler] 2 puff IH QID PRN #1 inhalation PRN Reason: Shortness Of Breath Benzonatate [Tessalon Perles] 100 mg PO Q8HR #21 capsule Prednisone [predniSONE 10 mg (6-Day Pack, 21 Tabs)] 10 mg PO .TAPER #1 tab.ds.pk Referrals: PRIMARY CARE, [Primary Care Provider] - 3-5 Days ELDER MERCADO MD [Referring] - 3-5 Days [facility] [Outside] - 3-5 Days [facility] [Outside] - 3-5 Days [facility] [Outside] - 3-5 Days Forms: Work/School Release Form(ED), Accompanied Note Time of Disposition: 13:27
[2017-02-07 14:22] VITALS: BP 145/75
== END 2017-02-07 13:45 | disposition home or self-care (01) ==
LOC: ED 08:36
DX: J45.901 Unspecified asthma with (acute) exacerbation (principal); I10 Essential (primary) hypertension; E11.9 Type 2 diabetes mellitus without complications; I50.9 Heart failure, unspecified; K21.9 Gastro-esophageal reflux disease without esophagitis; F41.9 Anxiety disorder, unspecified; Z79.82 Long term (current) use of aspirin; Z79.4 Long term (current) use of insulin
CPT/HCPCS: 36415; 71020; 80048; 84484; 85025; 93005; 93010; 96372; 99284; J2930

== ENCOUNTER 2017-09-26 15:07 | Emergency (ER) | payer MEDICARE ==
[2017-09-26 16:00] VITALS: BP 112/67
[2017-09-26] MEDS ORDERED: ASPIRIN PO ONE (16:00)
[2017-09-26 16:31] LABS: Basophils # (Auto) 0.1 K/mm3 (0.0-0.1); Basophils % (Auto) 0.9 % (0.0-1.8); Eosinophils # (Auto) 0.1 K/mm3 (0.0-0.4); Eosinophils % (Auto) 2.3 % (0.0-4.3); Hematocrit 41.2 % (30.3-42.9); Hemoglobin 13.2 gm/dl (10.1-14.3); Lymphocytes # (Auto) 1.8 K/mm3 (1.2-5.4); Lymphocytes % (Auto) 28.4 % (13.4-35.0); Mean Corpuscular HGB Conc 32 % (30-34); Mean Corpuscular Hemoglobin 26 pg (28-32); Mean Corpuscular Volume 81 fl (79-97); Monocytes # (Auto) 0.5 K/mm3 (0.0-0.8); Monocytes % (Auto) 7.5 % (0.0-7.3); Platelet Count 195 K/mm3 (140-440); Red Blood Count 5.08 M/mm3 (3.65-5.03); Red Cell Distribution Width 16.9 % (13.2-15.2)
[2017-09-26] MEDS ORDERED: ROBAXIN PO ONE (16:38)
[2017-09-26] MEDS ORDERED: TORADOL IV ONE (16:38)
[2017-09-26 16:53] LABS: BUN/Creatinine Ratio 28; Blood Urea Nitrogen 22 mg/dL (7-17); Calcium 8.5 mg/dL (8.4-10.2); Hemolysis Index 98
--- NOTE | 2017-09-26 19:15 | XRay Report ---
FINAL REPORT EXAM: XR CHEST 1V AP HISTORY: cp TECHNIQUE: upright single view chest PRIORS: None. FINDINGS: Cardiac and mediastinal contours are unremarkable. No focal pulmonary infiltrate is identified. No pleural fluid collection seen. Pulmonary vasculature is unremarkable. Sternotomy wires are noted. IMPRESSION: Negative single-view chest
[2017-09-26] MEDS ORDERED: NACL 0.9% 1000 ML 1,000 ML IV ONE (19:16)
--- NOTE | 2017-09-26 19:43 | Emergency Department Report ---
ED General Adult HPI - General Chief complaint: Chest Pain Stated complaint: UPPER BACK PAIN Time Seen by Provider: 09/26/17 16:32 Source: EMS Mode of arrival: Stretcher Limitations: No Limitations - History of Present Illness Initial comments: She is a 57-year-old [place] who is presenting with back pain. Patient states last night she was having intermittent crampy pain in her upper back and lasted several seconds and then will resolve but returned. Patient states that this will take her breath away she becomes short of breath. Patient had a CABG several months ago and is fearful that her heart is having issues. Patient denies chest pain currently. The patient also denies any diaphoresis nausea vomiting chest pain abdominal pain at this time. Location: back Radiation: non-radiation Severity scale (0 -10): 8 Quality: sharp Consistency: intermittent Improves with: none Worsens with: movement, rest Associated Symptoms: other (patient does state that she is anxious). denies: confusion, chest pain, cough, diaphoresis, fever/chills, headaches, malaise, nausea/vomiting, rash, syncope - Related Data Home Medications Medication Instructions Recorded Confirmed Last Taken Lantus 15 units SQ QHS 02/21/15 01/27/17 01/26/17 15units Albuterol Sulfate [Proair Hfa] 2 puff INHALATION Q4HR PRN 01/27/17 01/27/17 Aspirin EC [Aspirin Enteric Coated 81 mg PO DAILY 01/27/17 01/27/17 01/27/17 TAB] Fluticasone [Flonase] 1 spray NS QDAY 01/27/17 01/27/17 01/26/17 Furosemide 40 mg PO DAILY 01/27/17 01/27/17 01/26/17 Insulin Glargine,Hum.rec.anlog 25 units SQ QAM 01/27/17 01/27/17 01/27/17 06:00 [Lantus Solostar] 12.5units Lisinopril 10 mg PO DAILY 01/27/17 01/27/17 01/26/17 Oxybutynin Chloride [Oxybutynin 5 mg PO BID 01/27/17 01/27/17 01/26/17 Chloride ER] Paroxetine HCl 10 mg PO DAILY 01/27/17 01/27/17 01/26/17 Potassium Chloride [Klor-Con M10] 10 meq PO DAILY 01/27/17 01/27/17 01/26/17 Ranitidine HCl [Zantac 150 MG TAB] 150 mg PO BID 01/27/17 01/27/17 01/26/17 glipiZIDE [Glipizide] 10 mg PO BID 01/27/17 01/27/17 01/26/17 Previous Rx's Medication Instructions Recorded Last Taken Type ALBUTEROL Inhaler [ProAir HFA 2 puff IH QID PRN #1 inhalation 03/31/16 01/27/17 08:15 Rx Inhaler] ALBUTEROL Inhaler [ProAir HFA 2 puff IH QID PRN #1 inhalation 02/07/17 Unknown Rx Inhaler] Acetaminophen/Codeine [Tylenol 1 tab PO Q6H PRN #14 tab 02/07/17 Unknown Rx /Codeine # 3 tab] Benzonatate [Tessalon Perles] 100 mg PO Q8HR #21 capsule 02/07/17 Unknown Rx Prednisone [predniSONE 10 mg 10 mg PO .TAPER #1 tab.ds.pk 02/07/17 Unknown Rx (6-Day Pack, 21 Tabs)] methOCARBAMOL [Robaxin TAB] 500 mg PO Q6H PRN #12 tablet 09/26/17 Unknown Rx traMADol [Ultram] 50 mg PO Q6HR PRN #12 tablet 09/26/17 Unknown Rx Allergies Allergy/AdvReac Type Severity Reaction Status Date / Time seafood Allergy Rash Uncoded 02/07/17 09:01 ED Review of Systems ROS: Stated complaint: UPPER BACK PAIN Other details as noted in HPI Comment: Unobtainable due to pts medical conditions ED Past Medical Hx - Past Medical History Hx Hypertension: Yes Hx Congestive Heart Failure: Yes Hx Diabetes: Yes Hx GERD: Yes Hx Psychiatric Treatment: Yes (PANIC/ANXIETY) Hx Asthma: Yes Hx COPD: No Additional medical history: Sleep apnea. mitral annular ring insertion 2011. echo 04/2016: EF 55-60%, diastolic dysfunction, severe left atrium dilatation Restricted mitral valve angioplasty with secondary severe mitral stenosis on - Surgical History Hx Open Heart Surgery: Yes Additional Surgical History: Patient states she had heart surgery but cannot explain exactly what type of surgery she had. She states they put something plastic inside of her called a "ling" but she does not know what it is - Social History Smoking Status: Never Smoker - Medications Home Medications: Home Medications Medication Instructions Recorded Confirmed Last Taken Type Lantus 15 units SQ QHS 02/21/15 01/27/17 01/26/17 History 15units ALBUTEROL Inhaler [ProAir HFA 2 puff IH QID PRN #1 inhalation 03/31/16 01/27/17 01/27/17 08:15 Rx Inhaler] Albuterol Sulfate [Proair Hfa] 2 puff INHALATION Q4HR PRN 01/27/17 01/27/17 History Aspirin EC [Aspirin Enteric Coated 81 mg PO DAILY 01/27/17 01/27/17 01/27/17 History TAB] Fluticasone [Flonase] 1 spray NS QDAY 01/27/17 01/27/17 01/26/17 History Furosemide 40 mg PO DAILY 01/27/17 01/27/17 01/26/17 History Insulin Glargine,Hum.rec.anlog 25 units SQ QAM 01/27/17 01/27/17 01/27/17 06:00 History [Lantus Solostar] 12.5units Lisinopril 10 mg PO DAILY 01/27/17 01/27/17 01/26/17 History Oxybutynin Chloride [Oxybutynin 5 mg PO BID 01/27/17 01/27/17 01/26/17 History Chloride ER] Paroxetine HCl 10 mg PO DAILY 01/27/17 01/27/17 01/26/17 History Potassium Chloride [Klor-Con M10] 10 meq PO DAILY 01/27/17 01/27/17 01/26/17 History Ranitidine HCl [Zantac 150 MG TAB] 150 mg PO BID 01/27/17 01/27/17 01/26/17 History glipiZIDE [Glipizide] 10 mg PO BID 01/27/17 01/27/17 01/26/17 History ALBUTEROL Inhaler [ProAir HFA 2 puff IH QID PRN #1 inhalation 02/07/17 Unknown Rx Inhaler] Acetaminophen/Codeine [Tylenol 1 tab PO Q6H PRN #14 tab 02/07/17 Unknown Rx /Codeine # 3 tab] Benzonatate [Tessalon Perles] 100 mg PO Q8HR #21 capsule 02/07/17 Unknown Rx Prednisone [predniSONE 10 mg 10 mg PO .TAPER #1 tab.ds.pk 02/07/17 Unknown Rx (6-Day Pack, 21 Tabs)] methOCARBAMOL [Robaxin TAB] 500 mg PO Q6H PRN #12 tablet 09/26/17 Unknown Rx traMADol [Ultram] 50 mg PO Q6HR PRN #12 tablet 09/26/17 Unknown Rx ED Physical Exam - General Limitations: No Limitations General appearance: alert, in no apparent distress - Head Head exam: Present: atraumatic, normocephalic - Eye Eye exam: Present: normal appearance - ENT ENT exam: Present: mucous membranes moist - Neck Neck exam: Present: normal inspection - Respiratory Respiratory exam: Present: normal lung sounds bilaterally. Absent: respiratory distress - Cardiovascular Cardiovascular Exam: Present: regular rate, normal rhythm. Absent: systolic murmur, diastolic murmur, rubs, gallop - GI/Abdominal GI/Abdominal exam: Present: soft, normal bowel sounds - Extremities Exam Extremities exam: Present: normal inspection - Back Exam Back exam: Present: normal inspection - Neurological Exam Neurological exam: Present: alert, oriented X3 - Psychiatric Psychiatric exam: Present: normal affect, normal mood - Skin Skin exam: Present: warm, dry, intact, normal color. Absent: rash ED Course Vital Signs 09/26/17 09/26/17 09/26/17 15:32 15:45 15:54 Temperature 98.6 F Pulse Rate 70 72 72 Respiratory 12 15 Rate Blood Pressure 112/67 112/67 O2 Sat by Pulse 97 99 Oximetry 09/26/17 09/26/17 09/26/17 16:01 16:02 16:06 Temperature Pulse Rate 72 78 Respiratory 12 18 Rate Blood Pressure 112/67 O2 Sat by Pulse 95 96 Oximetry 09/26/17 09/26/17 09/26/17 16:15 16:31 16:45 Temperature Pulse Rate 71 72 74 Respiratory 17 21 22 Rate Blood Pressure 112/67 112/67 112/67 O2 Sat by Pulse 96 91 94 Oximetry 09/26/17 09/26/17 09/26/17 17:00 17:16 17:30 Temperature Pulse Rate 72 71 70 Respiratory 15 9 L 17 Rate Blood Pressure 112/67 112/67 O2 Sat by Pulse 99 95 94 Oximetry 09/26/17 09/26/17 09/26/17 17:46 18:00 18:16 Temperature Pulse Rate 70 70 70 Respiratory 19 19 15 Rate Blood Pressure 112/67 112/67 112/67 O2 Sat by Pulse 94 97 94 Oximetry 09/26/17 09/26/17 09/26/17 18:30 18:46 19:00 Temperature Pulse Rate 69 68 72 Respiratory 17 18 15 Rate Blood Pressure 112/67 112/67 112/67 O2 Sat by Pulse 96 97 97 Oximetry 09/26/17 09/26/17 19:16 19:30 Temperature Pulse Rate 70 71 Respiratory 19 12 Rate Blood Pressure 112/67 112/67 O2 Sat by Pulse 98 98 Oximetry ED Medical Decision Making - Lab Data Result diagrams: 09/26/17 16:15 09/26/17 16:15 - EKG Data -: EKG Interpreted by Wi - EKG Data Interpretation: other (EKG shows sinus rhythm rate of 71 axis is normal intervals and normal there is left ventricular hypertrophy is no ST segment elevations or depressions or T-wave inversions as interpreted as a normal EKG time of interpretation 1535) - Radiology Data Radiology results: report reviewed No acute process - Medical Decision Making Patient is a 57-year-old who is presenting with upper back pain is intermittent. Patient's description of her back pain is very similar to this back spasm. Patient does have elevated glucose and may be slightly dehydrated causing muscle spasm. Patient will be given IV fluids and be sent home with Robaxin. Critical care attestation.: If time is entered above; I have spent that time in minutes in the direct care of this critically ill patient, excluding procedure time. ED Disposition Clinical Impression: Back muscle spasm, Hyperglycemia Disposition: DC-01 TO HOME OR SELFCARE Is pt being admited?: No Does the pt Need Aspirin: No Condition: Good Prescriptions: methOCARBAMOL [Robaxin TAB] 500 mg PO Q6H PRN #12 tablet PRN Reason: Spasms traMADol [Ultram] 50 mg PO Q6HR PRN #12 tablet PRN Reason: Pain Referrals: PRIMARY CARE, [Primary Care Provider] - 3-5 Days
== END 2017-09-26 21:43 | disposition home or self-care (01) ==
LOC: ED 15:07
DX: M62.830 Muscle spasm of back (principal); E11.65 Type 2 diabetes mellitus with hyperglycemia; I10 Essential (primary) hypertension; K21.9 Gastro-esophageal reflux disease without esophagitis; F41.9 Anxiety disorder, unspecified; J45.909 Unspecified asthma, uncomplicated; Z79.82 Long term (current) use of aspirin; Z91.013 Allergy to seafood
CPT/HCPCS: 36415; 71045; 80048; 82962; 84484; 85025; 93005; 93010; 96361; 96374; 99285; J1885; J7030

== ENCOUNTER 2018-10-01 17:29 | Inpatient (IN) | payer MEDICARE ==
[2018-10-01 18:39] LABS: Basophils # (Auto) 0.1 K/mm3 (0.0-0.1); Basophils % (Auto) 0.7 % (0.0-1.8); Eosinophils # (Auto) 0.3 K/mm3 (0.0-0.4); Eosinophils % (Auto) 3.8 % (0.0-4.3); Hematocrit 37.6 % (30.3-42.9); Hemoglobin 12.1 gm/dl (10.1-14.3); Lymphocytes # (Auto) 2.1 K/mm3 (1.2-5.4); Lymphocytes % (Auto) 29.9 % (13.4-35.0); Mean Corpuscular HGB Conc 32 % (30-34); Mean Corpuscular Volume 82 fl (79-97); Monocytes # (Auto) 0.4 K/mm3 (0.0-0.8); Monocytes % (Auto) 5.7 % (0.0-7.3); Platelet Count 194 K/mm3 (140-440); Red Blood Count 4.58 M/mm3 (3.65-5.03); Red Cell Distribution Width 15.7 % (13.2-15.2)
[2018-10-01 18:44] LABS: Bilirubin,Urine NEG (Negative); Blood,Urine NEG (Negative); Color,Urine Straw (Yellow); Protein,Urine <15 mg/dL mg/dL (Negative); RBC,Urine < 1.0 /HPF (0.0-6.0); Urobilinogen,Urine < 2.0 mg/dL (<2.0)
--- NOTE | 2018-10-01 19:14 | Emergency Department Report ---
ED General Adult HPI - General Chief complaint: Chest Pain Stated complaint: BACK PAIN/SOB Time Seen by Provider: 10/01/18 19:00 Source: patient Mode of arrival: Ambulatory Limitations: No Limitations - History of Present Illness Initial comments: Patient is a 58-year-old female past HISTORY OF HEART FAILURE WHO PRESENTS WITH SHORTNESS OF BREATH AND BACK PAIN. SHE STATES THAT THIS IS GOING ON FOR LAST COUPLE DAYS HER BACK PAIN IS LOCATED IN THE MIDDLE OF HER BACK DOES NOT RADIATE DOWN HER LEGS. NOTHING THAT SHE DOES MAKES IT BETTER OR WORSE. The pain is a 5 out 10. She states that her shortness of breath is severe. - Related Data Home Medications Medication Instructions Recorded Confirmed Last Taken Albuterol Sulfate [Proair Hfa] 2 puff INHALATION Q4HR PRN 01/27/17 10/01/18 08/23/18 14:00 Lisinopril 10 mg PO DAILY 01/27/17 10/01/18 08/23/18 08:00 Oxybutynin Chloride [Oxybutynin 5 mg PO BID 01/27/17 10/01/18 08/23/18 08:00 Chloride ER] Insulin Glargine,Hum.rec.anlog 25 units SUB-Q BID 08/23/18 10/01/18 08/23/18 08:00 [Basaglar Kwikpen U-100] Potassium Chloride [Klor-Con 10] 10 meq PO BID 08/23/18 10/01/18 08/23/18 08:00 Sertraline HCl [Zoloft] 50 mg PO DAILY 08/23/18 10/01/18 08/23/18 08:00 Previous Rx's Medication Instructions Recorded Last Taken Type ALBUTEROL NEB's [Proventil 0.083% 2.5 mg IH Q4HRT PRN nebu 07/31/18 08/23/18 14:00 Rx NEBS] Furosemide [Lasix TAB] 40 mg PO DAILY #30 tablet 07/31/18 08/23/18 08:00 Rx HYDROcodone/APAP 5-325 [[place] 1 each PO Q6H PRN #60 tablet 07/31/18 08/18/18 13:00 Rx 5-325 mg TAB] Warfarin Sodium [Coumadin] 2.5 mg PO 6XW #1 tablet 07/31/18 08/23/18 14:00 Rx Warfarin [Coumadin] 5 mg PO QWEEK #1 tablet 07/31/18 08/16/18 08:00 Rx traMADol [Ultram 50 MG tab] 50 mg PO Q6HR PRN #60 tablet 07/31/18 08/22/18 18:00 Rx Pantoprazole [Protonix] 40 mg PO QDAY #30 tablet 08/25/18 Unknown Rx Allergies Allergy/AdvReac Type Severity Reaction Status Date / Time seafood Allergy Rash Uncoded 02/07/17 09:01 ED Review of Systems ROS: Stated complaint: BACK PAIN/SOB Other details as noted in HPI Constitutional: denies: chills, fever Eyes: denies: eye pain, eye discharge, vision change ENT: denies: ear pain, throat pain Respiratory: shortness of breath. denies: cough, wheezing Cardiovascular: denies: chest pain, palpitations Endocrine: no symptoms reported Gastrointestinal: denies: abdominal pain, nausea, diarrhea Genitourinary: denies: urgency, dysuria, discharge Musculoskeletal: denies: back pain, joint swelling, arthralgia Skin: denies: rash, lesions Neurological: denies: headache, weakness, paresthesias Psychiatric: denies: anxiety, depression Hematological/Lymphatic: denies: easy bleeding, easy bruising ED Past Medical Hx - Past Medical History Hx Hypertension: Yes Hx Congestive Heart Failure: Yes Hx Diabetes: Yes Hx GERD: Yes Hx Psychiatric Treatment: Yes (PANIC/ANXIETY) Hx Asthma: Yes Hx COPD: No Additional medical history: Sleep apnea. mitral annular ring insertion 11/15/2011. echo 04/2016: EF 55-60%, diastolic dysfunction, severe left atrium dilatation Restricted mitral valve angioplasty with secondary severe mitral stenosis on. pacemaker (07/31/18) - Surgical History Hx Open Heart Surgery: Yes (2009 and 2016) Hx Pacemaker: Yes (07/31/18) Additional Surgical History: plastic "ling" but she does not know what it is - Social History Smoking Status: Never Smoker Substance Use Type: None - Medications Home Medications: Home Medications Medication Instructions Recorded Confirmed Last Taken Type Albuterol Sulfate [Proair Hfa] 2 puff INHALATION Q4HR PRN 01/27/17 10/01/18 08/23/18 14:00 History Lisinopril 10 mg PO DAILY 01/27/17 10/01/18 08/23/18 08:00 History Oxybutynin Chloride [Oxybutynin 5 mg PO BID 01/27/17 10/01/18 08/23/18 08:00 History Chloride ER] ALBUTEROL NEB's [Proventil 0.083% 2.5 mg IH Q4HRT PRN nebu 07/31/18 10/01/18 08/23/18 14:00 Rx NEBS] Furosemide [Lasix TAB] 40 mg PO DAILY #30 tablet 07/31/18 10/01/18 08/23/18 08:00 Rx HYDROcodone/APAP 5-325 [[place] 1 each PO Q6H PRN #60 tablet 07/31/18 10/01/18 08/18/18 13:00 Rx 5-325 mg TAB] Warfarin Sodium [Coumadin] 2.5 mg PO 6XW #1 tablet 07/31/18 10/01/18 08/23/18 14:00 Rx Warfarin [Coumadin] 5 mg PO QWEEK #1 tablet 07/31/18 10/01/18 08/16/18 08:00 Rx traMADol [Ultram 50 MG tab] 50 mg PO Q6HR PRN #60 tablet 07/31/18 10/01/18 08/22/18 18:00 Rx Insulin Glargine,Hum.rec.anlog 25 units SUB-Q BID 08/23/18 10/01/18 08/23/18 08:00 History [Basaglar Kwikpen U-100] Potassium Chloride [Klor-Con 10] 10 meq PO BID 08/23/18 10/01/18 08/23/18 08:00 History Sertraline HCl [Zoloft] 50 mg PO DAILY 08/23/18 10/01/18 08/23/18 08:00 History Pantoprazole [Protonix] 40 mg PO QDAY #30 tablet 08/25/18 10/01/18 Unknown Rx ED Physical Exam - General Limitations: No Limitations General appearance: alert, in no apparent distress - Head Head exam: Present: atraumatic, normocephalic - Eye Eye exam: Present: normal appearance - ENT ENT exam: Present: mucous membranes moist - Neck Neck exam: Present: normal inspection - Respiratory Respiratory exam: Present: other (crackles ). Absent: respiratory distress - Cardiovascular Cardiovascular Exam: Present: regular rate, normal rhythm. Absent: systolic murmur, diastolic murmur, rubs, gallop - GI/Abdominal GI/Abdominal exam: Present: soft, normal bowel sounds - Extremities Exam Extremities exam: Present: normal inspection - Back Exam Back exam: Present: normal inspection - Neurological Exam Neurological exam: Present: alert, oriented X3 - Psychiatric Psychiatric exam: Present: normal affect, normal mood - Skin Skin exam: Present: warm, dry, intact, normal color. Absent: rash ED Course Vital Signs 10/01/18 10/01/18 10/01/18 18:06 19:20 20:00 Temperature 98 F 97.9 F Pulse Rate 74 69 70 Respiratory 16 16 10 L Rate Blood Pressure 159/76 140/79 Blood Pressure 143/74 [Right] O2 Sat by Pulse 100 99 97 Oximetry ED Medical Decision Making - Lab Data Result diagrams: 10/01/18 18:18 Lab Results 10/01/18 10/01/18 10/01/18 Range/Units 18:09 18:18 18:18 WBC 7.2 (4.5-11.0) K/mm3 RBC 4.58 (3.65-5.03) M/mm3 Hgb 12.1 (10.1-14.3) gm/dl Hct 37.6 (30.3-42.9) % MCV 82 (79-97) fl MCH 26 L (28-32) pg MCHC 32 (30-34) % RDW 15.7 H (13.2-15.2) % Plt Count 194 (140-440) K/mm3 Lymph % (Auto) 29.9 (13.4-35.0) % [place] % (Auto) 5.7 (0.0-7.3) % Eos % (Auto) 3.8 (0.0-4.3) % Baso % (Auto) 0.7 (0.0-1.8) % Lymph # 2.1 (1.2-5.4) K/mm3 [place] # 0.4 (0.0-0.8) K/mm3 Eos # 0.3 (0.0-0.4) K/mm3 Baso # 0.1 (0.0-0.1) K/mm3 Seg Neutrophils % 59.9 (40.0-70.0) % Seg Neutrophils # 4.3 (1.8-7.7) K/mm3 Total Bilirubin 0.20 (0.1-1.2) mg/dL Direct Bilirubin < 0.2 (0-0.2) mg/dL Indirect Bilirubin 0.0 mg/dL AST 19 (5-40) units/L ALT 16 (7-56) units/L Alkaline Phosphatase 97 (35-129) units/L Troponin T < 0.010 (0.00-0.029) ng/mL Total Protein 7.7 (6.3-8.2) g/dL Albumin 3.9 (3.9-5) g/dL Albumin/Globulin Ratio 1.0 % Urine Color Straw (Yellow) Urine Turbidity Clear (Clear) Urine pH 6.0 (5.0-7.0) Ur Specific [place] 1.006 (1.003-1.030) Urine Protein <15 mg/dl (Negative) mg/dL Urine Glucose (UA) Neg (Negative) mg/dL Urine Ketones Neg (Negative) mg/dL Urine Blood Neg (Negative) Urine Nitrite Neg (Negative) Urine Bilirubin Neg (Negative) Urine Urobilinogen < 2.0 (<2.0) mg/dL Ur Leukocyte Esterase Neg (Negative) Urine WBC (Auto) 1.0 (0.0-6.0) /HPF Urine RBC (Auto) < 1.0 (0.0-6.0) /HPF U Epithel Cells (Auto) < 1.0 (0-13.0) /HPF - EKG Data -: EKG Interpreted by Id - EKG Data 10/01/18 20:40 EKG shows normal sinus rhythm no ST segment elevation noted T-wave inversion normal axis. - Radiology Data Radiology results: report reviewed, image reviewed Chest x-ray: Shows enlarged cardio silhouette with AICD. - Medical Decision Making Cdx: CHF ddx: NSTEMI, PNA I will get cbc,bmp, troponin, IV pain medication, IV diuretics and will re- evalute the patient. Critical care attestation.: If time is entered above; I have spent that time in minutes in the direct care of this critically ill patient, excluding procedure time. ED Disposition Clinical Impression: SOB (shortness of breath) CHF (congestive heart failure) Qualifiers: Heart failure type: unspecified Heart failure chronicity: unspecified Qualified Code(s): I50.9 - Heart failure, unspecified Disposition: DC-09 OP ADMIT IP TO THIS HOSP Is pt being admited?: Yes Does the pt Need Aspirin: No Condition: Stable Referrals: CHRISTINA CASTILLO DO [Staff Physician] - 3-5 Days
[2018-10-01 19:19] LABS: Alanine Aminotransferase 16 units/L (7-56); Albumin 3.9 g/dL (3.9-5)
[2018-10-01 19:44] LABS: Bilirubin,Direct < 0.2 mg/dL (0-0.2)
[2018-10-01] MEDS ORDERED: MORPHINE IV ONE (19:50)
--- NOTE | 2018-10-01 19:51 | XRay Report ---
FINAL REPORT EXAM: XR CHEST ROUTINE 2V HISTORY: Shortness of breath TECHNIQUE: PA and lateral views of the chest Comparison: Chest x-ray dated August 23, 2018 FINDINGS: There is prominence of the interstitial markings in both lungs that appears to of increased in degree since the previous study. There appear to be patchy areas of pulmonary consolidation in the lung bases bilaterally. Atelectasis versus infiltrates. There is prominence of the pulmonary venous vasculature suggestive of pulmonary venous congestion. There is no evidence of pneumothorax or pleural fluid collection. The cardiac silhouette is enlarged with dual lead AICD and evidence of previous CABG procedure simila r in appearance to the previous study. The thoracic aorta and bony structures are not significantly changed. IMPRESSION: 1. Enlarged cardiac silhouette with AICD. 2. Prominence of the interstitial markings with evidence of pulmonary venous congestion which appears to have increased since the previous study and may represent changes of CHF. 3. Patchy areas of pulmonary consolidation in both lung bases. Atelectasis versus infiltrates.
[2018-10-01] MEDS ORDERED: LASIX IV ONE (19:58)
[2018-10-01] MEDS ORDERED: THALITONE PO ONE (20:58)
[2018-10-01 22:03] LABS: BUN/Creatinine Ratio 21; Blood Urea Nitrogen 15 mg/dL (7-17); Hemolysis Index 11
[2018-10-01] MEDS ORDERED: D50W (25GM) Syringe IV PRN (23:00)
[2018-10-01] MEDS ORDERED: TYLENOL PO PRN (23:04)
[2018-10-01] MEDS ORDERED: ZOFRAN IV PRN (23:04)
[2018-10-01] MEDS ORDERED: ULTRAM PO PRN (23:08)
--- NOTE | 2018-10-01 23:46 | Cat Scan Report ---
FINAL REPORT PROCEDURE: CT ANGIO CHEST TECHNIQUE: Computerized tomographic angiography of the chest was performed after the IV injection of iodinated nonionic contrast including image processing. The image data was postprocessed using 2-dim ensional multiplanar reformatted (MPR) and 3-dimensional (MIP and/or volume rendered) techniques. HISTORY: sob COMPARISON: No prior studies are available for comparison. FINDINGS: Heart and pericardium: The heart size is normal. No pericardial effusion. Multiple sternal wires are present. There enlargement of the right thyroid gland, nodularity in this region is noted. Further ev aluation with ultrasound may be of benefit. There is a battery in the left chest wall.. Thoracic aorta: Normal. Pulmonary vasculature: There is no evidence of pulmonary arterial emboli. Lymph nodes: No enlarged thoracic lymph nodes. Lungs: Normal. Pleural space: No effusion, thickening, or pneumothorax. Musculoskeletal structures: No significant abnormality. Upper abdominal structures: No significant abnormality. IMPRESSION: There is no evidence of pulmonary arterial emboli. The lungs are clear without infiltrate, effusion or pneumothorax. Enlarged right lobe of the thyroid gland with multiple nodules suspected. Further evaluation with ult rasound should be entertained.
[2018-10-02] MEDS ORDERED: ULTRAM ONE (01:13)
--- NOTE | 2018-10-02 06:16 | History and Physical Report ---
CHIEF COMPLAINT: Shortness of breath. OTHER COMPLAINT: Back pain. HISTORY OF PRESENTING ILLNESS: The patient is a 58-year-old female with history of CHF, presenting with shortness of breath going on for a few days. There is history of associated mid upper back pain. There is no history of pain in the anterior chest wall area. Also, the patient denies history of cough, denies history of fever or chills and say that the back pain is not affected by movement or by breathing. There is no history of nausea or vomiting and no history of ankle swelling or edema. PAST MEDICAL HISTORY: Pertinent for hypertension, congestive heart failure, diabetes mellitus, gastroesophageal reflux disease, panic attack and anxiety attack. There is past history of asthma, sleep apnea, mitral annular ring insertion. PAST SURGICAL HISTORY: Pertinent for pacemaker placement, open heart surgery. There is also past surgical history of mitral valve surgery. FAMILY HISTORY: Family history is noncontributory. SOCIAL HISTORY: The patient does not smoke, does not drink alcohol and does not use illicit drugs. MEDICATIONS: The patient is on albuterol inhaler 2 puffs every 4 hours as needed for shortness of breath, lisinopril 10 mg by mouth daily, oxybutynin chloride 5 mg by mouth twice daily, albuterol nebulizer 2.5 mg by inhalation every 4 hours, Lasix 40 mg by mouth daily, [place] 5/325 mg one by mouth every 6 hours as needed for pain, Coumadin 2.5 mg by mouth 6 times a week and 5 mg by mouth every week. Also, the patient is on tramadol 50 mg by mouth every 6 hours as needed for pain, and on insulin glargine 25 units subcutaneous b.i.d. Also, the patient is on potassium chloride ____ 10 mEq by mouth twice daily and Zoloft 50 mg by mouth daily as well as Protonix 40 mg by mouth daily. ALLERGIES: THE PATIENT IS ALLERGIC TO SEEFOOD. REVIEW OF SYSTEMS: CONSTITUTIONAL: There is no fever, no chills, no diaphoresis. HEENT: There is no headache or sore throat. CARDIOVASCULAR SYSTEM: There is no chest pain or orthopnea. RESPIRATORY SYSTEM: Shortness of breath present. No cough. GASTROINTESTINAL SYSTEM: There is no nausea, no vomiting, no abdominal pain, diarrhea or constipation. NEUROLOGICAL SYSTEM: There is no numbness, no dizziness, no altered mental status. MUSCULOSKELETAL SYSTEM: Pain in the upper mid back area noted. No joint swelling. DERMATOLOGICAL SYSTEM: Show no skin rash or itching. GENITOURINARY SYSTEM: Show no dysuria, hematuria, or flank pain. Rest of system review is normal. PHYSICAL EXAMINATION: GENERAL: At the time of exam, the patient was found to be alert, oriented x 3 and not in acute distress. VITAL SIGNS: Shows temperature of 98 degrees Fahrenheit, pulse of 74, respirations 16, blood pressure 159/76, O2 sat of 100% on room air. HEENT: Showed pupils to be equal, round, reactive to light and accommodating. Extraocular muscles are intact. NECK: Neck is supple with no JVD or carotid bruit. CARDIOVASCULAR SYSTEM: Showed normal first and second heart sounds with no gallops or murmur. RESPIRATORY SYSTEM: Showed good air entry on both sides of the lungs with no abnormal breath sounds. GASTROINTESTINAL SYSTEM: Show abdomen to be full, soft, nontender with no organomegaly or rigidity. NEUROLOGICAL: Neuro exam shows no focal deficit. MUSCULOSKELETAL SYSTEM: Show no joint swelling or tenderness. DERMATOLOGICAL SYSTEM: Show no skin rash. GENITOURINARY SYSTEM: Showing no costovertebral angle tenderness. PERTINENT LABORATORY DATA AND IMAGING STUDIES: The patient had chest x-ray done that shows enlarged cardiac silhouette with AICD in place. Also, the patient's chest x-ray shows prominence of interstitial marking with evidence of pulmonary venous congestion, which appears to have increased since the previous study. According to the radiologist, this represents changes of CHF. There is also finding of patchy areas of pulmonary consolidation in both lung bases, which could be interpreted as atelectasis versus infiltrate. The patient had CT angiogram of the chest done that shows no evidence of pulmonary artery embolism and also the CT angio showed that the lungs are clear without infiltrate, effusion or pneumothorax. There is finding of large right lobe of thyroid gland with multiple nodules suspected. The Radiology said further evaluation with ultrasound should be entertained. Lab results, the patient had CBC done that came back unremarkable. The patient's chemistry was unremarkable. Urinalysis came back unremarkable. Cardiac enzyme was unremarkable. DIAGNOSES: 1. Congestive heart failure exacerbation. 2. Thyroid nodule on CT angiogram of chest. PLAN OF ACTION: 1. The patient will be admitted to telemetry. 2. The patient will have cardiac enzymes involving troponin, total CK and CK-MB check q. 6 hours x 2 more levels. 3. The patient will be on IV Lasix 40 mg daily and will also be on nitroglycerin paste half inch to anterior chest wall q.i.d. 4. The patient will be on p.r.n. medications like Tylenol 650 mg by mouth every 4 hours for fever and headache and IV Zofran 4 mg every 8 hours for nausea and vomiting. 5. The patient will be on consistent carbohydrate low sodium diet. 6. The patient will be on Accu-Chek a.c. and at bedtime followed by low-dose sliding scale using regular insulin coverage. 7. The patient will have 2D echo done this morning because of exacerbation of congestive heart failure. 8. The patient will be on home medications as shown in the medication reconciliation section. ADDENDUM: The patient's thyroid function TSH will be checked in the blood and the patient will get thyroid ultrasound done after the blood test was having done. JOB# [id number] OCN/NTS
[2018-10-02] MEDS: NITRO-BID 2% TP SCH ×5 (06:21→17:40)
[2018-10-02] MEDS: NORCO 5/325 PO PRN ×3 (06:22→20:10)
[2018-10-02 07:04] LABS: Creatine Kinase MB 2.8 ng/mL (0.0-4.0)
[2018-10-02] MEDS: HumuLIN R SUB-Q SCH ×4 (08:13→21:41)
--- NOTE | 2018-10-02 09:37 | Consultation ---
Addendum entered and electronically signed by JOSE CURTIS MD 10/02/18 10:26: 58-year-old woman with a history of mitral stenosis, paroxysmal atrial fibrillat ion, status post posterior mitral valve replacement. She is also status post dual-chamber pacemaker. A cardiac catheterization a year and a half ago before her mitral valve operation demonstrated angiographically normal coronaries. There is a moderate severity nonischemic cardiomyopathy, ejection fraction was 35-40% on an echocardiogram done 2 months ago. She is on amiodarone 200 mg daily for suppression of atrial fibrillation. Patient presents to the hospital at this time with shortness of breath. On the chest x-ray, there is diffuse bilateral mild interstitial opacities, described as probable interstitial edema by the radiologist. Cardiology consultation was requested for "CHF". Recommendations: After optimal diuresis, I will recommend a repeat of chest x-ray. If the interstitial opacities persist, there is a secondary consideration for amiodarone pulmonary toxicity. I will consult a nonprofit fundraiser. Original Note: History of Present Illness Consult date: 10/02/18 Consult reason: congestive heart failure History of present illness: This is a 58 year old woman with a history of mitrial stenosis and underwent porcine mitral valve replacement in 2016. At the time of her mitral valve surgery a cardiac cath showed normal coronary arteries, LVEF 50-55%. Post operatively she developed paroxysmal atrial fibrillation and is on amiodarone and warfarin for therapy. An echocardiogram done July 2018 reports a well functioning bio-prosthetic mitral valve but a left ventricular systolic function mild to moderately decreased, EF 35-40%. Patient also has a history of complete heart block and has a dual chamber pacemaker. Patient presents to this hospital with complaints of shortness of breath. A chest x-ray reports cardiomegaly with interstitial edema. In addition, patient reports intermittent palpitations after taking amiodarone. There are no reports of chest pain and she has no lower extremity edema. Her EKG is benign. No arrhythmias seen on telemetry thus far. TSH is normal. INR result is pending. A cardiac consultation was requested for further evaluation. Medications and Allergies Allergies Allergy/AdvReac Type Severity Reaction Status Date / Time seafood Allergy Rash Uncoded 02/07/17 09:01 Home Medications Medication Instructions Recorded Confirmed Last Taken Type Albuterol Sulfate [Proair Hfa] 2 puff INHALATION Q4HR PRN 01/27/17 10/01/18 08/23/18 14:00 History Lisinopril 10 mg PO DAILY 01/27/17 10/01/18 08/23/18 08:00 History Oxybutynin Chloride [Oxybutynin 5 mg PO BID 01/27/17 10/01/18 08/23/18 08:00 History Chloride ER] ALBUTEROL NEB's [Proventil 0.083% 2.5 mg IH Q4HRT PRN nebu 07/31/18 10/01/18 08/23/18 14:00 Rx NEBS] Furosemide [Lasix TAB] 40 mg PO DAILY #30 tablet 07/31/18 10/01/18 08/23/18 08:00 Rx HYDROcodone/APAP 5-325 [[place] 1 each PO Q6H PRN #60 tablet 07/31/18 10/01/18 08/18/18 13:00 Rx 5-325 mg TAB] Warfarin Sodium [Coumadin] 2.5 mg PO 6XW #1 tablet 07/31/18 10/01/18 08/23/18 14:00 Rx Warfarin [Coumadin] 5 mg PO QWEEK #1 tablet 07/31/18 10/01/18 08/16/18 08:00 Rx traMADol [Ultram 50 MG tab] 50 mg PO Q6HR PRN #60 tablet 07/31/18 10/01/18 08/22/18 18:00 Rx Insulin Glargine,Hum.rec.anlog 25 units SUB-Q BID 08/23/18 10/01/18 08/23/18 08:00 History [Basaglar Kwikpen U-100] Potassium Chloride [Klor-Con 10] 10 meq PO BID 08/23/18 10/01/18 08/23/18 08:00 History Sertraline HCl [Zoloft] 50 mg PO DAILY 08/23/18 10/01/18 08/23/18 08:00 History Pantoprazole [Protonix] 40 mg PO QDAY #30 tablet 08/25/18 10/01/18 Unknown Rx Active Meds: Active Medications Acetaminophen (Tylenol) 650 mg PO Q4H PRN PRN Reason: Fever >101 Acetaminophen/Hydrocodone Bitart ([place] 5/325) 1 each PO Q6H PRN PRN Reason: Pain, Moderate (4-6) Last Admin: 10/02/18 06:22 Dose: 1 each Documented by: Albuterol (Proventil) 2.5 mg IH Q6HRT PRN PRN Reason: Shortness Of Breath Dextrose (D50w (25gm) Syringe) 50 ml IV PRN PRN PRN Reason: Hypoglycemia Furosemide (Lasix) 40 mg IV QDAY [facility] Heparin Sodium (Porcine) (Heparin) 5,000 unit SUB-Q Q12HR UMESH Insulin Human Regular (Humulin R) 0 units SUB-Q AC [facility]; Protocol Last Admin: 10/02/18 08:13 Dose: Not Given Documented by: Insulin Human Regular (Humulin R) 0 units SUB-Q QHS [facility]; Protocol Lisinopril (Zestril) 10 mg PO DAILY [facility] Nitroglycerin (Nitro-Bid 2%) 0.5 inch TP QIDNTG [facility]; Protocol Last Admin: 10/02/18 06:21 Dose: 0.5 inch Documented by: Ondansetron HCl (Zofran) 4 mg IV Q8H PRN PRN Reason: Nausea And Vomiting Oxybutynin Chloride (Ditropan Xl) 5 mg PO BID [facility] Pantoprazole Sodium (Protonix) 40 mg PO QDAY [facility] Potassium Chloride (K-Dur) 10 meq PO BID [facility] Sertraline HCl (Zoloft) 50 mg PO DAILY [facility] Tramadol HCl (Ultram) 50 mg PO Q6H PRN PRN Reason: Pain Last Admin: 10/02/18 01:11 Dose: 50 mg Documented by: Warfarin Sodium (Coumadin) 2.5 mg PO QPM@1700 [facility]; Protocol Physical Examination Vital Signs Temp Pulse Resp BP Pulse Ox 98 F 74 16 159/76 100 10/01/18 18:06 10/01/18 18:06 10/01/18 18:06 10/01/18 18:06 10/01/18 18:06 General appearance: no acute distress HEENT: Positive: PERRL Cardiac: Positive: Reg Rate and Rhythm Lungs: Positive: Decreased Breath Sounds Neuro: Positive: Grossly Intact Extremities: Absent: edema Results 10/01/18 18:18 10/01/18 18:18 Cardiac Enzymes 10/01/18 10/02/18 10/02/18 Range/Units 18:18 00:15 06:08 AST 19 (5-40) units/L CK-MB (CK-2) 3.0 2.8 (0.0-4.0) ng/mL CBC 10/01/18 Range/Units 18:18 WBC 7.2 (4.5-11.0) K/mm3 RBC 4.58 (3.65-5.03) M/mm3 Hgb 12.1 (10.1-14.3) gm/dl Hct 37.6 (30.3-42.9) % Plt Count 194 (140-440) K/mm3 Lymph # 2.1 (1.2-5.4) K/mm3 [place] # 0.4 (0.0-0.8) K/mm3 Eos # 0.3 (0.0-0.4) K/mm3 Baso # 0.1 (0.0-0.1) K/mm3 Comprehensive Metabolic Panel 10/01/18 10/01/18 Range/Units 18:18 18:18 Sodium 139 (137-145) mmol/L Potassium 3.7 (3.6-5.0) mmol/L Chloride 99.9 (98-107) mmol/L Carbon Dioxide 24 (22-30) mmol/L BUN 15 (7-17) mg/dL Creatinine 0.7 (0.7-1.2) mg/dL Glucose 97 (65-100) mg/dL Calcium 9.0 (8.4-10.2) mg/dL Direct Bilirubin < 0.2 (0-0.2) mg/dL Indirect Bilirubin 0.0 mg/dL AST 19 (5-40) units/L ALT 16 (7-56) units/L Alkaline Phosphatase 97 (35-129) units/L Total Protein 7.7 (6.3-8.2) g/dL Albumin 3.9 (3.9-5) g/dL Assessment and Plan Acute systolic heart failure Porcine Mitral valve replacement 02/2017 Paroxysmal Afib currently in sinus rhythm on warfarin for oral anticoagulation Hx of Complete heart block presence of DC pacemaker Hypertension Diabetes Echocardiogram 07/2018 reports a well functioning bio-prosthetic mitral valve. Left ventricular systolic function mild to moderately decreased, EF 35-40%. February 2017 cardiac cath showed normal coronary arteries, LVEF 50-55%. Recommendations: We will repeat a chest x-ray. Pulmonary consultation for evaluation of shortness of breath with abnormal CXR. Medical therapy for acute systolic heart failure and paroxysmal afib. We will hold amiodarone for now.
[2018-10-02] MEDS: PROTONIX PO SCH (09:47)
[2018-10-02] MEDS: ZESTRIL PO SCH (09:47)
[2018-10-02] MEDS: K-DUR PO SCH ×2 (09:47→21:37)
[2018-10-02] MEDS: DITROPAN XL PO SCH ×2 (09:47→21:34)
[2018-10-02] MEDS ORDERED: LASIX IV SCH (10:00)
--- NOTE | 2018-10-02 10:06 | Event Note ---
Date: 10/02/18 Patient is 58 yo with diabetes, hypertension, CHF. She presented with shortness of breath, diagnosed with CHF exacerbation. I have seen and examined her. Continue current management. daryl fonseca
--- NOTE | 2018-10-02 11:14 | XRay Report ---
ROUTINE CHEST, TWO VIEWS: HISTORY: Shortness of breath. No significant change is appreciated since 10/01/18. CABG changes and a 2-lead pacemaker device are again noted. Heart size and pulmonary vascularity are stable at the upper limits of normal. The lungs are clear. No pleural effusion or pneumothorax. IMPRESSION: No acute cardiopulmonary process is identified.
[2018-10-02] MEDS: HEPARIN SUB-Q SCH ×2 (12:45→21:34)
[2018-10-02 14:35] LABS: INR 1.96 (0.87-1.13)
[2018-10-02] MEDS: PROVENTIL IH PRN ×2 (14:35→20:42)
--- NOTE | 2018-10-02 15:01 | Consultation ---
History of Present Illness Consult date: 10/02/18 Requesting physician: JOSE CURTIS Reason for consult: dyspnea, abnormal CXR/CT History of present illness: 58 y/o, obese female admitted with back pain. Base of skull and lower back. patient and describe the pain as tight in nature. Per and patient, every time she has pain, makes it hard to breath. Per , and patient, steroids have been given for the pain in the past and it made everything better. Currently patient is on a 40% ventimask and does appear uncomfortable. Past History Past Medical History: other (asthma per patient and but only on albuterol therapy.) Past Surgical History: Other (OPEN HEART x2) Social history: Family history: no significant family history Medications and Allergies Allergies Allergy/AdvReac Type Severity Reaction Status Date / Time seafood Allergy Rash Uncoded 02/07/17 09:01 Home Medications Medication Instructions Recorded Confirmed Last Taken Type Albuterol Sulfate [Proair Hfa] 2 puff INHALATION Q4HR PRN 01/27/17 10/01/18 08/23/18 14:00 History Lisinopril 10 mg PO DAILY 01/27/17 10/01/18 08/23/18 08:00 History Oxybutynin Chloride [Oxybutynin 5 mg PO BID 01/27/17 10/01/18 08/23/18 08:00 History Chloride ER] ALBUTEROL NEB's [Proventil 0.083% 2.5 mg IH Q4HRT PRN nebu 07/31/18 10/01/18 08/23/18 14:00 Rx NEBS] Furosemide [Lasix TAB] 40 mg PO DAILY #30 tablet 07/31/18 10/01/18 08/23/18 08:00 Rx HYDROcodone/APAP 5-325 [Labadie 1 each PO Q6H PRN #60 tablet 07/31/18 10/01/18 08/18/18 13:00 Rx 5-325 mg TAB] Warfarin Sodium [Coumadin] 2.5 mg PO 6XW #1 tablet 07/31/18 10/01/18 08/23/18 14:00 Rx Warfarin [Coumadin] 5 mg PO QWEEK #1 tablet 07/31/18 10/01/18 08/16/18 08:00 Rx traMADol [Ultram 50 MG tab] 50 mg PO Q6HR PRN #60 tablet 07/31/18 10/01/18 08/22/18 18:00 Rx Insulin Glargine,Hum.rec.anlog 25 units SUB-Q BID 08/23/18 10/01/18 08/23/18 08:00 History [Basaglar Kwikpen U-100] Potassium Chloride [Klor-Con 10] 10 meq PO BID 08/23/18 10/01/18 08/23/18 08:00 History Sertraline HCl [Zoloft] 50 mg PO DAILY 08/23/18 10/01/18 08/23/18 08:00 History Pantoprazole [Protonix] 40 mg PO QDAY #30 tablet 08/25/18 10/01/18 Unknown Rx Active Meds: Active Medications Acetaminophen (Tylenol) 650 mg PO Q4H PRN PRN Reason: Fever >101 Acetaminophen/Hydrocodone Bitart (Labadie 5/325) 1 each PO Q6H PRN PRN Reason: Pain, Moderate (4-6) Last Admin: 10/02/18 14:22 Dose: 1 each Documented by: Albuterol (Proventil) 2.5 mg IH Q6HRT PRN PRN Reason: Shortness Of Breath Last Admin: 10/02/18 14:35 Dose: 2.5 mg Documented by: Dextrose (D50w (25gm) Syringe) 50 ml IV PRN PRN PRN Reason: Hypoglycemia Furosemide (Lasix) 40 mg IV 0600,1800 [facility] Heparin Sodium (Porcine) (Heparin) 5,000 unit SUB-Q Q12HR [facility] Last Admin: 10/02/18 12:45 Dose: Not Given Documented by: Insulin Human Regular (Humulin R) 0 units SUB-Q AC [facility]; Protocol Last Admin: 10/02/18 12:45 Dose: Not Given Documented by: Insulin Human Regular (Humulin R) 0 units SUB-Q QHS [facility]; Protocol Lisinopril (Zestril) 10 mg PO DAILY [facility] Last Admin: 10/02/18 09:47 Dose: 10 mg Documented by: Nitroglycerin (Nitro-Bid 2%) 0.5 inch TP QIDNTG [facility]; Protocol Last Admin: 10/02/18 09:47 Dose: 0.5 inch Documented by: Ondansetron HCl (Zofran) 4 mg IV Q8H PRN PRN Reason: Nausea And Vomiting Oxybutynin Chloride (Ditropan Xl) 5 mg PO BID [facility] Last Admin: 10/02/18 09:47 Dose: 5 mg Documented by: Pantoprazole Sodium (Protonix) 40 mg PO QDAY [facility] Last Admin: 10/02/18 09:47 Dose: 40 mg Documented by: Potassium Chloride (K-Dur) 10 meq PO BID [facility] Last Admin: 10/02/18 09:47 Dose: 10 meq Documented by: Sertraline HCl (Zoloft) 50 mg PO DAILY [facility] Tramadol HCl (Ultram) 50 mg PO Q6H PRN PRN Reason: Pain Last Admin: 10/02/18 01:11 Dose: 50 mg Documented by: Warfarin Sodium (Coumadin) 2.5 mg PO QPM@1700 [facility]; Protocol Review of Systems All systems: negative Physical Examination Vital signs: Vital Signs Temp Pulse Resp BP Pulse Ox 98 F 74 16 159/76 100 10/01/18 18:06 10/01/18 18:06 10/01/18 18:06 10/01/18 18:06 10/01/18 18:06 General appearance: no acute distress, alert, other (obese) Eyes: non-icteric ENT: oropharynx moist Neck: supple, other (limited range of motion secondary to pain) Ascultation: Bilateral: clear Percussion: Bilateral: not dull Tactile fremitus: Bilateral: normal Cardiovascular: regular rate and rhythm Gastrointestinal: normoactive bowel sounds, soft, non-tender Integumentary: normal Extremities: no cyanosis normal mental status, non-focal exam mood appropriate Results - Laboratory Findings CBC and BMP: 10/01/18 18:18 10/01/18 18:18 PT/INR, D-dimer PT 22.7 Sec. (12.2-14.9) H 10/02/18 13:16 INR 1.96 (0.87-1.13) H 10/02/18 13:16 Abnormal lab findings: Abnormal Labs 10/01/18 10/02/18 10/02/18 18:18 00:15 06:08 MCH 26 L RDW 15.7 H PT INR POC Glucose Total Creatine Kinase 185 H 165 H 10/02/18 10/02/18 10/02/18 07:16 13:16 13:51 MCH RDW PT 22.7 H INR 1.96 H POC Glucose 52 L 155 H Total Creatine Kinase - Diagnostic Findings Chest x-ray: image reviewed (Cardiomegaly with Device in left chest and left ventricle (ICD vs PAcemaker)) CT scan - chest: image reviewed (no evidence of acute lung disease) Assessment and Plan 58 y/o, obese female with shortness of breath, but with clear CXR. 1. Consult was for abnormal CXR, no abnormalites are noted in the lung parenchyma and this is confirmed by CT. 2. Per patient suffers from asthma. Will place on Budesonide BID and continue PRN albuterol nebs. Will also give Prednisone 60 daily vs Solumedrol, 60 IV daily. 3. All others per primary team.
[2018-10-02] MEDS: ZOLOFT PO SCH (15:09)
[2018-10-02] MEDS: LASIX IV SCH (17:36)
[2018-10-02] MEDS: SOLU-Medrol IV SCH (17:38)
[2018-10-02] MEDS: COUMADIN PO SCH (17:40)
[2018-10-02] MEDS: PULMICORT IH SCH (20:42)
[2018-10-02] MEDS: COLACE PO SCH (21:34)
[2018-10-02] MEDS: DULCOLAX PO PRN (21:42)
[2018-10-02] MEDS ORDERED: NACL 0.9% 1000 ML 1,000 ML IV ONE (22:00)
[2018-10-03] MEDS: LASIX IV SCH (06:17)
[2018-10-03] MEDS: NITRO-BID 2% TP SCH ×2 (06:17→09:25)
[2018-10-03 06:48] LABS: INR 1.97 (0.87-1.13)
[2018-10-03] MEDS: PULMICORT IH SCH ×2 (08:00→20:31)
[2018-10-03] MEDS: PROVENTIL IH PRN (08:00)
[2018-10-03] MEDS: HumuLIN R SUB-Q SCH ×4 (09:19→21:39)
[2018-10-03] MEDS: HEPARIN SUB-Q SCH ×2 (09:20→21:38)
[2018-10-03] MEDS: DITROPAN XL PO SCH ×2 (09:20→21:39)
[2018-10-03] MEDS: ZESTRIL PO SCH (09:20)
[2018-10-03] MEDS: PROTONIX PO SCH (09:20)
[2018-10-03] MEDS: K-DUR PO SCH ×2 (09:20→21:40)
[2018-10-03] MEDS: COLACE PO SCH ×2 (09:20→21:39)
[2018-10-03] MEDS: SOLU-Medrol IV SCH (09:23)
[2018-10-03] MEDS: ZOLOFT PO SCH (09:24)
--- NOTE | 2018-10-03 09:57 | Progress Note ---
Assessment and Plan Neck tightness and headache CTA chest pertinent for enlarge right thyroid nodule Porcine Mitral valve replacement 02/2017 Paroxysmal Afib currently in sinus rhythm on warfarin for oral anticoagulation Hx of Complete heart block presence of DC pacemaker Hypertension Diabetes Echocardiogram 07/2018 reports a well functioning bio-prosthetic mitral valve. Left ventricular systolic function mild to moderately decreased, EF 35-40%. February 2017 cardiac cath showed normal coronary arteries, LVEF 50-55%. Recommendations: No further cardiac work-up is needed Cervical spine X-ray or CT is warranted to further evaluate her neck tightness and headache Discontinue IV lasix and resume po lasix Continue lisinopril Start low dose toprol XL since amiodarone was discontinued Subjective Date of service: 10/03/18 Principal diagnosis: Neck tightness and headache Interval history: Patient denies chest pain or shortness of breath No events on tele Her main complaint is neck tightness and headache Objective Vital Signs Temp Pulse Pulse Pulse Resp Resp Resp 10/03/18 08:31 97.9 F 69 20 10/03/18 08:15 60 20 10/03/18 08:00 69 20 10/03/18 06:17 60 10/03/18 04:28 97.2 F L 60 16 10/02/18 23:22 97.5 F L 64 16 10/02/18 21:10 20 10/02/18 20:55 72 20 10/02/18 20:43 10/02/18 20:42 67 20 10/02/18 20:13 20 10/02/18 20:10 70 20 10/02/18 19:30 97.4 F L 66 16 10/02/18 19:15 73 10/02/18 17:14 97.9 F 70 16 10/02/18 14:45 92 H 20 10/02/18 14:35 86 20 10/02/18 13:50 97.4 F L 66 20 10/02/18 10:15 10/02/18 10:00 BP Pulse Ox 10/03/18 08:31 135/68 100 10/03/18 08:15 10/03/18 08:00 100 10/03/18 06:17 94/39 10/03/18 04:28 94/39 99 10/02/18 23:22 96/39 97 10/02/18 21:10 10/02/18 20:55 10/02/18 20:43 100 10/02/18 20:42 10/02/18 20:13 10/02/18 20:10 100 10/02/18 19:30 88/41 100 10/02/18 19:15 10/02/18 17:14 93/63 97 10/02/18 14:45 10/02/18 14:35 10/02/18 13:50 98/61 100 10/02/18 10:15 100 10/02/18 10:00 95 - Physical Examination HEENT: Positive: PERRL Neck: Positive: neck supple Cardiac: Positive: Reg Rate and Rhythm Lungs: Positive: clear to auscultation Neuro: Positive: Grossly Intact Extremities: Absent: edema - Labs and Meds Coagulation 10/02/18 10/03/18 Range/Units 13:16 05:49 PT 22.7 H 22.8 H (12.2-14.9) Sec. INR 1.96 H 1.97 H (0.87-1.13)
[2018-10-03] MEDS: TOPROL XL PO SCH (10:24)
[2018-10-03] MEDS: LASIX PO SCH (10:25)
[2018-10-03] MEDS: DULCOLAX PO PRN (10:25)
--- NOTE | 2018-10-03 11:01 | XRay Report ---
FINAL REPORT EXAM: XR SPINE CERVICAL 2-3V HISTORY: Neck pain COMPARISON: None. TECHNIQUE: Three views cervical spine FINDINGS: There is normal alignment without acute fracture or dislocation. The vertebral body heights are maint ained. There is mild diffuse intervertebral disc space narrowing with anterior and uncovertebral oste ophyte formation. The prevertebral soft tissues are normal. The airway is patent. IMPRESSION: Degenerative changes of the cervical spine without acute fracture or dislocation.
--- NOTE | 2018-10-03 13:59 | Progress Note ---
Assessment and Plan 58 y/o, obese female with shortness of breath, but with clear CXR. 1. Will change to PO prednisone 60 daily. Patient will need long taper. 60x4, 40x4, 20x4, 10x4 then stop. 2. Continue BID pulmicort and albuterol treatments 3. All others per primary team. 4. Wean FiO2 for sats >88% 5. Will need follow up in office with full PFT, six minute walk and baseline 2 view CXR Subjective Date of service: 10/03/18 Principal diagnosis: Neck tightness and headache Interval history: Has had improvement with steroids. Still on oxygen. Cardiology ordered neck films. and other family at bedside. Objective Vital Signs - 12hr 10/03/18 10/03/18 10/03/18 04:28 06:17 08:00 Temperature 97.2 F L Pulse Rate 60 60 Pulse Rate [ 69 Anterior Bilateral Throughout] Pulse Rate [ 70 Apical] Respiratory 16 20 Rate Respiratory 20 Rate [Anterior Bilateral Throughout] Blood Pressure 94/39 94/39 O2 Sat by Pulse 99 100 Oximetry 10/03/18 10/03/18 08:15 08:31 Temperature 97.9 F Pulse Rate 69 Pulse Rate [ 60 Anterior Bilateral Throughout] Pulse Rate [ Apical] Respiratory 20 Rate Respiratory 20 Rate [Anterior Bilateral Throughout] Blood Pressure 135/68 O2 Sat by Pulse 100 Oximetry Constitutional: no acute distress, alert, other (obese) Eyes: non-icteric ENT: oropharynx moist Neck: supple, other (limited range of motion secondary to pain) Ascultation: Bilateral: clear Percussion: Bilateral: not dull Tactile fremitus: Bilateral: normal Cardiovascular: regular rate and rhythm Gastrointestinal: normoactive bowel sounds, soft, non-tender Integumentary: normal Extremities: no cyanosis Neurologic: normal mental status, non-focal exam Psychiatric: mood appropriate CBC and BMP: 10/01/18 18:18 10/01/18 18:18 ABG, PT/INR, D-dimer: PT/INR, D-dimer PT 22.8 Sec. (12.2-14.9) H 10/03/18 05:49 INR 1.97 (0.87-1.13) H 10/03/18 05:49 Abnormal lab findings: Abnormal Labs 10/01/18 10/02/18 10/02/18 18:18 00:15 06:08 MCH 26 L RDW 15.7 H PT INR POC Glucose Total Creatine Kinase 185 H 165 H 10/02/18 10/02/18 10/02/18 07:16 13:16 13:51 MCH RDW PT 22.7 H INR 1.96 H POC Glucose 52 L 155 H Total Creatine Kinase 10/02/18 10/02/18 10/03/18 17:14 20:42 05:34 MCH RDW PT INR POC Glucose 173 H 259 H 264 H Total Creatine Kinase 10/03/18 10/03/18 05:49 11:49 MCH RDW PT 22.8 H INR 1.97 H POC Glucose 277 H Total Creatine Kinase
--- NOTE | 2018-10-03 14:30 | Progress Note ---
Assessment and Plan Assessment and plan: Acute resp failure due to CHF exacerbation. Supplemental Oxygen Acute on chronic systolic CHF Lasix iv Fluid I/O Hypertension. Monitor BP paroxysmal afib On Coumadin Thyroid nodule on CT Chest. Will do thyroid Ultrasound Diabetes mellitus type 2. Fingerstick glucose Qac and HS Full code stats History Interval history: Less shortness of breath No chest pain Hospitalist Physical - Physical exam Narrative exam: GEN: Not in acute distress,lying in bed, On Oxygen by NC HEENT: Normocephalic, atraumatic, Neck: supple, No JVD Lungs: Bilateral basal crackles, no wheeze Heart:S1 and S2 regular, no murmurs, rubs or gallop, Abd:soft, non tender, non distended, normal bowel sounds Ext: No edema, no clubbing or cyanosis Neuro: Awake,alert, oriented x 3, No focal signs Psych:Normal mood - Constitutional Vitals: Temp Pulse Resp BP Pulse Ox 97.9 F 69 20 135/68 100 10/03/18 08:31 10/03/18 08:31 10/03/18 08:31 10/03/18 08:31 10/03/18 08:31 General appearance: Present: no acute distress Results - Labs CBC & Chem 7: 10/01/18 18:18 10/01/18 18:18 Labs: Laboratory Last Values WBC 7.2 K/mm3 (4.5-11.0) 10/01/18 18:18 RBC 4.58 M/mm3 (3.65-5.03) 10/01/18 18:18 Hgb 12.1 gm/dl (10.1-14.3) 10/01/18 18:18 Hct 37.6 % (30.3-42.9) 10/01/18 18:18 MCV 82 fl (79-97) 10/01/18 18:18 MCH 26 pg (28-32) L 10/01/18 18:18 MCHC 32 % (30-34) 10/01/18 18:18 RDW 15.7 % (13.2-15.2) H 10/01/18 18:18 Plt Count 194 K/mm3 (140-440) 10/01/18 18:18 Lymph % (Auto) 29.9 % (13.4-35.0) 10/01/18 18:18 Randall % (Auto) 5.7 % (0.0-7.3) 10/01/18 18:18 Eos % (Auto) 3.8 % (0.0-4.3) 10/01/18 18:18 Baso % (Auto) 0.7 % (0.0-1.8) 10/01/18 18:18 Lymph # 2.1 K/mm3 (1.2-5.4) 10/01/18 18:18 Randall # 0.4 K/mm3 (0.0-0.8) 10/01/18 18:18 Eos # 0.3 K/mm3 (0.0-0.4) 10/01/18 18:18 Baso # 0.1 K/mm3 (0.0-0.1) 10/01/18 18:18 Seg Neutrophils % 59.9 % (40.0-70.0) 10/01/18 18:18 Seg Neutrophils # 4.3 K/mm3 (1.8-7.7) 10/01/18 18:18 PT 22.8 Sec. (12.2-14.9) H 10/03/18 05:49 INR 1.97 (0.87-1.13) H 10/03/18 05:49 Sodium 139 mmol/L (137-145) 10/01/18 18:18 Potassium 3.7 mmol/L (3.6-5.0) 10/01/18 18:18 Chloride 99.9 mmol/L (98-107) 10/01/18 18:18 Carbon Dioxide 24 mmol/L (22-30) 10/01/18 18:18 Anion Gap 19 mmol/L 10/01/18 18:18 BUN 15 mg/dL (7-17) 10/01/18 18:18 Creatinine 0.7 mg/dL (0.7-1.2) 10/01/18 18:18 Estimated GFR > 60 ml/min 10/01/18 18:18 BUN/Creatinine Ratio 21 % 10/01/18 18:18 Glucose 97 mg/dL (65-100) 10/01/18 18:18 POC Glucose 277 (70-105) H 10/03/18 11:49 Calcium 9.0 mg/dL (8.4-10.2) 10/01/18 18:18 Total Bilirubin 0.20 mg/dL (0.1-1.2) 10/01/18 18:18 Direct Bilirubin < 0.2 mg/dL (0-0.2) 10/01/18 18:18 Indirect Bilirubin 0.0 mg/dL 10/01/18 18:18 AST 19 units/L (5-40) 10/01/18 18:18 ALT 16 units/L (7-56) 10/01/18 18:18 Alkaline Phosphatase 97 units/L (35-129) 10/01/18 18:18 Total Creatine Kinase 165 units/L (30-135) H 10/02/18 06:08 CK-MB (CK-2) 2.8 ng/mL (0.0-4.0) 10/02/18 06:08 CK-MB (CK-2) Rel Index 1.6 (0-4) 10/02/18 06:08 Troponin T < 0.010 ng/mL (0.00-0.029) 10/02/18 06:08 NT-Pro-B Natriuret Pep 236.1 pg/mL (0-900) 10/02/18 13:16 Total Protein 7.7 g/dL (6.3-8.2) 10/01/18 18:18 Albumin 3.9 g/dL (3.9-5) 10/01/18 18:18 Albumin/Globulin Ratio 1.0 % 10/01/18 18:18 TSH 2.370 mlU/mL (0.270-4.200) 10/02/18 06:08 Urine Color Straw (Yellow) 10/01/18 18:09 Urine Turbidity Clear (Clear) 10/01/18 18:09 Urine pH 6.0 (5.0-7.0) 10/01/18 18:09 Ur Specific Ulysses 1.006 (1.003-1.030) 10/01/18 18:09 Urine Protein <15 mg/dl mg/dL (Negative) 10/01/18 18:09 Urine Glucose (UA) Neg mg/dL (Negative) 10/01/18 18:09 Urine Ketones Neg mg/dL (Negative) 10/01/18 18:09 Urine Blood Neg (Negative) 10/01/18 18:09 Urine Nitrite Neg (Negative) 10/01/18 18:09 Urine Bilirubin Neg (Negative) 10/01/18 18:09 Urine Urobilinogen < 2.0 mg/dL (<2.0) 10/01/18 18:09 Ur Leukocyte Esterase Neg (Negative) 10/01/18 18:09 Urine WBC (Auto) 1.0 /HPF (0.0-6.0) 10/01/18 18:09 Urine RBC (Auto) < 1.0 /HPF (0.0-6.0) 10/01/18 18:09 U Epithel Cells (Auto) < 1.0 /HPF (0-13.0) 10/01/18 18:09 Nutrition/Malnutrition Assess - Dietary Evaluation Nutrition/Malnutrition Findings: Nutrition Notes Start: 10/02/18 18:06 Freq: Status: Active Protocol: Document 10/02/18 18:06 RM (Rec: 10/02/18 18:10 RM [id number]) Nutrition Notes Initial or Follow up Assessment Current Diagnosis Diabetes Hypertension Heart Failure Other Pertinent Diagnosis GERD Subjective/Other Information Pt screened for Coumadin/Vit K diet education. Pt stated that she had been previously educated but could not recall what she learned. Reviewed Coumadin/Vit K diet education. Gave handout. #1 Nutrition Diagnosis Food and nutrition-related knowledge deficit Etiology pt inability to recall previous diet education As Evidenced by Signs and Symptoms pt desire for diet education Nutrition Intervention Teaching Recipient Patient Learning Readiness Good Teaching Methods Discussion Handout Response to Teaching Verbalize understanding Education Handouts Provided Vitamin K and medications Barriers to Learning No Barriers RD phone number provided Yes Patient aware of follow up options Yes Revisit per MD consult or patient Sign Off request:
[2018-10-03] MEDS ORDERED: COUMADIN PO ONE (17:00)
[2018-10-03] MEDS: COUMADIN PO SCH (17:36)
[2018-10-04 05:51] LABS: INR 2.59 (0.87-1.13)
[2018-10-04 05:58] LABS: BUN/Creatinine Ratio 29; Blood Urea Nitrogen 26 mg/dL (7-17); Calcium 9.5 mg/dL (8.4-10.2); Hemolysis Index 11
[2018-10-04] MEDS: PROVENTIL IH PRN (08:03)
[2018-10-04] MEDS: PULMICORT IH SCH (08:03)
--- NOTE | 2018-10-04 09:21 | Progress Note ---
Assessment and Plan Neck tightness and headache CTA chest pertinent for enlarge right thyroid nodule Cervical spine Xray - degenerative changes Porcine Mitral valve replacement 02/2017 Paroxysmal Afib currently in sinus rhythm on warfarin for oral anticoagulation Hx of Complete heart block presence of DC pacemaker Hypertension Diabetes Echocardiogram 07/2018 reports a well functioning bio-prosthetic mitral valve. Left ventricular systolic function mild to moderately decreased, EF 35-40%. February 2017 cardiac cath showed normal coronary arteries, LVEF 50-55%. Recommendations: No further cardiac work-up is needed May go home cardiac diaz Follow-up with [facility] in 1-2 weeks (patient to call office tomorrow and schedule) Subjective Date of service: 10/04/18 Principal diagnosis: Neck tightness and headache Interval history: Patient denies chest pain or shortness of breath Her headaches have improved after having 2-3 BMs Objective Vital Signs Temp Pulse Pulse Resp Resp Resp BP 10/04/18 05:59 98.0 F 63 18 120/59 10/04/18 04:20 97.4 F L 62 16 93/27 10/03/18 23:42 18 10/03/18 23:28 97.4 F L 68 18 78/47 10/03/18 21:56 18 10/03/18 21:50 18 10/03/18 20:39 76 18 10/03/18 20:34 10/03/18 20:31 75 18 10/03/18 19:22 97.8 F 72 16 114/59 10/03/18 19:19 68 10/03/18 16:27 98.0 F 70 20 101/54 10/03/18 11:49 98.6 F 69 20 97/45 BP Pulse Ox 10/04/18 05:59 99 10/04/18 04:20 99 10/03/18 23:42 92/50 2 L 10/03/18 23:28 97 10/03/18 21:56 10/03/18 21:50 96 10/03/18 20:39 10/03/18 20:34 96 10/03/18 20:31 10/03/18 19:22 96 10/03/18 19:19 10/03/18 16:27 99 10/03/18 11:49 98 - Physical Examination HEENT: Positive: PERRL Neck: Positive: neck supple Cardiac: Positive: Reg Rate and Rhythm Lungs: Positive: Normal Exam Neuro: Positive: Grossly Intact Extremities: Absent: edema - Labs and Meds Coagulation 10/04/18 Range/Units 05:00 PT 28.1 H (12.2-14.9) Sec. INR 2.59 H (0.87-1.13) Comprehensive Metabolic Panel 10/04/18 Range/Units 05:00 Sodium 137 (137-145) mmol/L Potassium 3.6 (3.6-5.0) mmol/L Chloride 95.1 L (98-107) mmol/L Carbon Dioxide 26 (22-30) mmol/L BUN 26 H (7-17) mg/dL Creatinine 0.9 (0.7-1.2) mg/dL Glucose 170 H (65-100) mg/dL Calcium 9.5 (8.4-10.2) mg/dL
[2018-10-04] MEDS: SOLU-Medrol IV SCH (09:50)
[2018-10-04] MEDS: ZOLOFT PO SCH (09:51)
[2018-10-04] MEDS: COLACE PO SCH (09:51)
[2018-10-04] MEDS: K-DUR PO SCH (09:51)
[2018-10-04] MEDS: ZESTRIL PO SCH (09:51)
[2018-10-04] MEDS: LASIX PO SCH (09:51)
[2018-10-04] MEDS: PROTONIX PO SCH (09:52)
[2018-10-04] MEDS: HumuLIN R SUB-Q SCH (09:52)
[2018-10-04] MEDS: DITROPAN XL PO SCH (09:52)
[2018-10-04 10:04] VITALS: BP 134/60
[2018-10-04] MEDS: TOPROL XL PO SCH (10:04)
--- NOTE | 2018-10-04 11:35 | Progress Note ---
Assessment and Plan 58 y/o, obese female with shortness of breath, but with clear CXR. 1. Medrol dose pack as oppose to prolong steroid taper. 2. Will need follow up in office with full PFT, six minute walk and baseline 2 view CXR Subjective Date of service: 10/04/18 Principal diagnosis: Neck tightness and headache Interval history: Feeling better. Going home today. Objective Vital Signs - 12hr 10/03/18 10/04/18 10/04/18 23:42 04:20 05:59 Temperature 97.4 F L 98.0 F Pulse Rate 62 63 Respiratory 18 16 18 Rate Blood Pressure 93/27 120/59 Blood Pressure 92/50 [Right] O2 Sat by Pulse 2 L 99 99 Oximetry 10/04/18 10/04/18 09:51 10:04 Temperature Pulse Rate 73 Respiratory Rate Blood Pressure 134/60 Blood Pressure [Right] O2 Sat by Pulse Oximetry Constitutional: no acute distress, alert, other (obese) Eyes: non-icteric ENT: oropharynx moist Neck: supple, other (limited range of motion secondary to pain) Ascultation: Bilateral: clear Percussion: Bilateral: not dull Tactile fremitus: Bilateral: normal Cardiovascular: regular rate and rhythm Gastrointestinal: normoactive bowel sounds, soft, non-tender Integumentary: normal Extremities: no cyanosis Neurologic: normal mental status, non-focal exam Psychiatric: mood appropriate CBC and BMP: 10/01/18 18:18 10/04/18 05:00 ABG, PT/INR, D-dimer: PT/INR, D-dimer PT 28.1 Sec. (12.2-14.9) H 10/04/18 05:00 INR 2.59 (0.87-1.13) H 10/04/18 05:00 Abnormal lab findings: Abnormal Labs 10/01/18 10/02/18 10/02/18 18:18 00:15 06:08 MCH 26 L RDW 15.7 H PT INR Chloride BUN Glucose POC Glucose Total Creatine Kinase 185 H 165 H 10/02/18 10/02/18 10/02/18 07:16 13:16 13:51 MCH RDW PT 22.7 H INR 1.96 H Chloride BUN Glucose POC Glucose 52 L 155 H Total Creatine Kinase 10/02/18 10/02/18 10/03/18 17:14 20:42 05:34 MCH RDW PT INR Chloride BUN Glucose POC Glucose 173 H 259 H 264 H Total Creatine Kinase 10/03/18 10/03/18 10/03/18 05:49 11:49 16:31 MCH RDW PT 22.8 H INR 1.97 H Chloride BUN Glucose POC Glucose 277 H 239 H Total Creatine Kinase 10/03/18 10/04/18 10/04/18 20:40 05:00 05:00 MCH RDW PT 28.1 H INR 2.59 H Chloride 95.1 L BUN 26 H Glucose 170 H POC Glucose 247 H Total Creatine Kinase 10/04/18 05:42 MCH RDW PT INR Chloride BUN Glucose POC Glucose 180 H Total Creatine Kinase
--- NOTE | 2018-10-04 12:07 | Discharge Summary ---
Providers - Providers Date of Admission: 10/01/18 22:58 Date of discharge: 10/04/18 Attending physician: MARTHA LINDSEY 10/02/18 07:35 Consult to Physician [CONS] Routine Comment: Consulting Provider: JOSE CURTIS Physician Instructions: Reason For Exam: CHF exacerbation 10/02/18 09:53 Consult to Physician [CONS] Routine Comment: Consulting Provider: WHITNEY CAN Physician Instructions: Reason For Exam: Abnormal CXR Primary care physician: ANDRÉS LARA Hospitalization Condition: Fair Hospital course: Patient is 58 yo with CHF, hypertension, diabetes. She presented with shortness of breath. She was diagnosed with acute respiratory failure due to CHF exacerbation. She was stared on lasix iv, Oxygen and admitted.Patient was evaluated by cardiology. She improved on treatment. shortness of breath resolved so was discharged home. She was asked to continue Coumadin for afib. Total time spent on discharge, 33 mins Disposition: TO HOME OR SELFCARE - Discharge Diagnoses (1) Acute respiratory failure Status: Acute (2) Acute on chronic systolic (congestive) heart failure Status: Acute (3) Diabetes Status: Acute (4) HTN (hypertension) Status: Acute Qualifiers: Hypertension type: unspecified Qualified Code(s): I10 - Essential (primary) hypertension (5) PAF (paroxysmal atrial fibrillation) Status: Acute Core Measure Documentation - Palliative Care Palliative Care/ Comfort Measures: Not Applicable - Core Measures Any of the following diagnoses?: heart failure - Heart Failure Discharge Requirements KASI/ARB for LVSD if EF <40%: Yes Beta broderick at discharge: Yes Exam - Constitutional Vitals: Temp Pulse Resp BP Pulse Ox 98.0 F 73 20 134/60 99 10/04/18 05:59 10/04/18 09:51 10/04/18 08:13 10/04/18 10:04 10/04/18 08:03 Plan Additional Instructions: 1.Follow up with PCP in 1 week. 2.Enlarged thyroid nodule to be followed by PCP in 1 week. 3.Follow up with Dr. Garcia Pulm in 1 week. 4.Follow up with Dr. Kit Rodriguez, cardiology in 3-5 days. 5.Check INR on at Office of Dr. Kit Rodriguez Forms: Warfarin Discharge Instruction Prescriptions: Metoprolol Xl [Metoprolol SUCCINATE ER TAB] 50 mg PO QDAY #30 tablet Prednisone [predniSONE 5 mg (6-Day Pack, 21 Tabs)] 5 mg PO .TAPER #1 tab.ds.pk
[2018-10-08] MEDS ORDERED: COUMADIN PO SCH (10:00)
== END 2018-10-04 15:05 | disposition home or self-care (01) | DRG 291 ==
LOC: ED 17:29 → 4A 22:58
PROVIDERS: ADMIT Internal Medicine; ATTEND Internal Medicine
DX: I11.0 Hypertensive heart disease with heart failure (principal); J96.00 Acute respiratory failure, unspecified whether with hypoxia or hypercapnia; I48.0 Paroxysmal atrial fibrillation; I42.8 Other cardiomyopathies; I50.23 Acute on chronic systolic (congestive) heart failure; F41.9 Anxiety disorder, unspecified; K21.9 Gastro-esophageal reflux disease without esophagitis; J45.909 Unspecified asthma, uncomplicated; E04.1 Nontoxic single thyroid nodule; G47.30 Sleep apnea, unspecified; E11.9 Type 2 diabetes mellitus without complications; Z79.4 Long term (current) use of insulin; Z91.013 Allergy to seafood; Z79.01 Long term (current) use of anticoagulants; Z79.899 Other long term (current) drug therapy; Z95.2 Presence of prosthetic heart valve; Z95.1 Presence of aortocoronary bypass graft; Z95.0 Presence of cardiac pacemaker
CPT/HCPCS: 36415; 71046; 71275; 72040; 80048; 80076; 81001; 82550; 82553; 82962; 83880; 84443; 84484; 85025; 85610; 87116; 93005; 93010; 94640; 94760; 96374; 96375; G0378; J1644; J1815; J1940; J2270; J2930; J7030; Q9967

== ENCOUNTER 2018-11-20 15:29 | Emergency (ER) | payer MEDICARE ==
--- NOTE | 2018-11-20 17:50 | Emergency Department Report ---
Chief Complaint: Extremity Injury, Lower Stated Complaint: RT LEG PAIN Time Seen by Provider: 11/20/18 17:44 - HPI History of Present Illness: This is a 58 y.o. female that presents with right knee pain x 2 days. Patient states she slipped and caught fall in [employer] and in pain every since. She is currently taking norco with no improvement of pain. PMH of DM, HTN, & eczema. Patient states she have 2 stents to RLE and currently taking Coumadin. Reports pain and swelling to anterior knee. Patient walking with cane. - ROS Review of Systems: right knee pain - Exam Vital Signs: Vital Signs 11/20/18 16:46 Temperature 98.0 F Pulse Rate 79 Respiratory 20 Rate Blood Pressure 137/69 [Right] O2 Sat by Pulse 96 Oximetry MSE screening note: Focused history and physical exam performed. Due to findings the following was ordered: labs x-ray of right knee ED Disposition for MSE Condition: Stable
[2018-11-20 19:28] LABS: Basophils # (Auto) 0.1 K/mm3 (0.0-0.1); Basophils % (Auto) 1.4 % (0.0-1.8); Eosinophils # (Auto) 0.4 K/mm3 (0.0-0.4); Eosinophils % (Auto) 5.9 % (0.0-4.3); Hematocrit 32.9 % (30.3-42.9); Hemoglobin 10.7 gm/dl (10.1-14.3); Lymphocytes # (Auto) 1.4 K/mm3 (1.2-5.4); Lymphocytes % (Auto) 21.9 % (13.4-35.0); Mean Corpuscular HGB Conc 32 % (30-34); Mean Corpuscular Volume 83 fl (79-97); Monocytes # (Auto) 0.5 K/mm3 (0.0-0.8); Monocytes % (Auto) 7.3 % (0.0-7.3); Platelet Count 199 K/mm3 (140-440); Red Blood Count 3.98 M/mm3 (3.65-5.03); Red Cell Distribution Width 16.4 % (13.2-15.2)
[2018-11-20 19:43] LABS: INR 4.31 (0.87-1.13)
[2018-11-20 20:07] LABS: Partial Thromboplastin Time 89.1 Sec. (24.2-36.6)
--- NOTE | 2018-11-20 20:18 | XRay Report ---
PROCEDURE: XR KNEE 3V RT TECHNIQUE: Right knee, 3 views HISTORY: anterior knee pain and swelling COMPARISONS: None available FINDINGS: There is a large joint effusion. No fracture or joint dislocation seen. There are tricompartmental os teoarthritic changes, with joint space narrowing and osteophyte formation. IMPRESSION: Osteoarthritis and joint effusion. No acute osseous abnormality is seen. This document is electronically signed by Keyana Lyman MD., November 20 2018 08:16:33 PM ET
--- NOTE | 2018-11-20 20:37 | Emergency Department Report ---
ED Lower Extremity HPI - General Chief Complaint: Extremity Injury, Lower Stated Complaint: RT LEG PAIN Time Seen by Provider: 11/20/18 17:44 Source: patient Mode of arrival: Ambulatory Limitations: No Limitations - History of Present Illness Initial Comments: 58-year-old obese female presents emergency department complaining of of right knee pain after a slip without a fall while in [facility] earlier today. States she was walking some of the finger and the floor and her right foot hit the handle, causing her to slip and was was able to catch her balance and maintain herself with her right cane. Since that time she noticed some some discomfort to her right knee an adult dull throbbing fashion with possible minimal swelling. Pain is worse with standing and flexion. She reports no calf pain or swelling. No chest pain or shortness of breath. She noticed no bruising. She has a past medical history of open-heart surgery and is on a host of medications including Coumadin. There was no chest pain, palpitations, headache, presyncope, head trauma, neck pain MD Complaint: knee injury -: Sudden Injury: Knee: Right Type of Injury: unknown Worsens With: weight bearing, movement, palpation Context: other Associated Symptoms: able to partially bear weight, ambulatory. denies: snap/pop sensation, swelling, numbness, tingling - Related Data Home Medications Medication Instructions Recorded Confirmed Last Taken Albuterol Sulfate [Proair Hfa] 2 puff INHALATION Q4HR PRN 01/27/17 10/01/18 08/23/18 14:00 Lisinopril 10 mg PO DAILY 01/27/17 10/01/18 08/23/18 08:00 Oxybutynin Chloride [Oxybutynin 5 mg PO BID 01/27/17 10/01/18 08/23/18 08:00 Chloride ER] Insulin Glargine,Hum.rec.anlog 25 units SUB-Q BID 08/23/18 10/01/18 08/23/18 08:00 [Basaglar Beronicaikpen U-100] Potassium Chloride [Klor-Con 10] 10 meq PO BID 08/23/18 10/01/18 08/23/18 08:00 Sertraline HCl [Zoloft] 50 mg PO DAILY 08/23/18 10/01/18 08/23/18 08:00 Previous Rx's Medication Instructions Recorded Last Taken Type ALBUTEROL NEB's [Proventil 0.083% 2.5 mg IH Q4HRT PRN nebu 07/31/18 08/23/18 14:00 Rx NEBS] Furosemide [Lasix TAB] 40 mg PO DAILY #30 tablet 07/31/18 08/23/18 08:00 Rx HYDROcodone/APAP 5-325 [[place] 1 each PO Q6H PRN #60 tablet 07/31/18 08/18/18 13:00 Rx 5-325 mg TAB] Warfarin Sodium [Coumadin] 2.5 mg PO 6XW #1 tablet 07/31/18 08/23/18 14:00 Rx Warfarin [Coumadin] 5 mg PO QWEEK #1 tablet 07/31/18 08/16/18 08:00 Rx traMADol [Ultram 50 MG tab] 50 mg PO Q6HR PRN #60 tablet 07/31/18 08/22/18 18:00 Rx Pantoprazole [Protonix TAB] 40 mg PO QDAY #30 tablet 08/25/18 Unknown Rx Metoprolol Xl [Metoprolol 50 mg PO QDAY #30 tablet 10/04/18 Unknown Rx SUCCINATE ER TAB] Prednisone [predniSONE 5 mg (6-Day 5 mg PO .TAPER #1 tab.ds.pk 10/04/18 Unknown Rx Pack, 21 Tabs)] traMADol [Ultram] 50 mg PO Q6HR PRN #20 tablet 11/20/18 Unknown Rx Allergies Allergy/AdvReac Type Severity Reaction Status Date / Time seafood Allergy Rash Uncoded 02/07/17 09:01 ED Review of Systems ROS: Stated complaint: RT LEG PAIN Other details as noted in HPI Constitutional: denies: chills, fever Eyes: denies: eye pain, eye discharge, vision change ENT: denies: ear pain, throat pain Respiratory: denies: cough, shortness of breath, wheezing Cardiovascular: denies: chest pain, palpitations Endocrine: no symptoms reported Gastrointestinal: denies: abdominal pain, nausea, diarrhea Genitourinary: denies: urgency, dysuria, discharge Musculoskeletal: joint swelling, arthralgia. denies: back pain Skin: denies: rash, lesions Neurological: denies: headache, weakness, paresthesias Psychiatric: denies: anxiety, depression Hematological/Lymphatic: denies: easy bleeding, easy bruising ED Past Medical Hx - Past Medical History Hx Hypertension: Yes Hx Congestive Heart Failure: Yes Hx Diabetes: Yes Hx GERD: Yes Hx Psychiatric Treatment: Yes (PANIC/ANXIETY) Hx Asthma: Yes Hx COPD: No Additional medical history: Sleep apnea. mitral annular ring insertion 11/15/2011. echo 04/2016: EF 55-60%, diastolic dysfunction, severe left atrium dilatation Restricted mitral valve angioplasty with secondary severe mitral stenosis on. pacemaker (07/31/18) - Surgical History Hx Open Heart Surgery: Yes (2009 and 2016) Hx Pacemaker: Yes (07/31/18) Additional Surgical History: plastic "ling" but she does not know what it is - Social History Smoking Status: Never Smoker Substance Use Type: None - Medications Home Medications: Home Medications Medication Instructions Recorded Confirmed Last Taken Type Albuterol Sulfate [Proair Hfa] 2 puff INHALATION Q4HR PRN 01/27/17 10/01/18 08/23/18 14:00 History Lisinopril 10 mg PO DAILY 01/27/17 10/01/18 08/23/18 08:00 History Oxybutynin Chloride [Oxybutynin 5 mg PO BID 01/27/17 10/01/18 08/23/18 08:00 History Chloride ER] ALBUTEROL NEB's [Proventil 0.083% 2.5 mg IH Q4HRT PRN nebu 07/31/18 10/01/18 08/23/18 14:00 Rx NEBS] Furosemide [Lasix TAB] 40 mg PO DAILY #30 tablet 07/31/18 10/01/18 08/23/18 08:00 Rx HYDROcodone/APAP 5-325 [[place] 1 each PO Q6H PRN #60 tablet 07/31/18 10/01/18 1 10/19/17 13:00 Rx 5-325 mg TAB] Warfarin Sodium [Coumadin] 2.5 mg PO 6XW #1 tablet 07/31/18 10/01/18 08/23/18 14:00 Rx Warfarin [Coumadin] 5 mg PO QWEEK #1 tablet 07/31/18 10/01/18 08/16/18 08:00 Rx traMADol [Ultram 50 MG tab] 50 mg PO Q6HR PRN #60 tablet 07/31/18 10/01/18 08/22/18 18:00 Rx Insulin Glargine,Hum.rec.anlog 25 units SUB-Q BID 08/23/18 10/01/18 08/23/18 08:00 History [Basagljeovany Fairpen U-100] Potassium Chloride [Klor-Con 10] 10 meq PO BID 08/23/18 10/01/18 08/23/18 08:00 History Sertraline HCl [Zoloft] 50 mg PO DAILY 08/23/18 10/01/18 08/23/18 08:00 History Pantoprazole [Protonix TAB] 40 mg PO QDAY #30 tablet 08/25/18 10/01/18 Unknown Rx Metoprolol Xl [Metoprolol 50 mg PO QDAY #30 tablet 10/04/18 Unknown Rx SUCCINATE ER TAB] Prednisone [predniSONE 5 mg (6-Day 5 mg PO .TAPER #1 tab.ds.pk 10/04/18 Unknown Rx Pack, 21 Tabs)] traMADol [Ultram] 50 mg PO Q6HR PRN #20 tablet 11/20/18 Unknown Rx ED Physical Exam - General Limitations: No Limitations General appearance: alert, in no apparent distress - Head Head exam: Present: atraumatic, normocephalic - Eye Eye exam: Present: normal appearance, PERRL, EOMI Pupils: Present: normal accommodation - ENT ENT exam: Present: normal exam, normal orophraynx, mucous membranes moist, TM's normal bilaterally, normal external ear exam - Neck Neck exam: Present: normal inspection, full ROM - Respiratory Respiratory exam: Present: normal lung sounds bilaterally. Absent: respiratory distress, wheezes, rales, rhonchi, chest wall tenderness, accessory muscle use, decreased breath sounds - Cardiovascular Cardiovascular Exam: Present: regular rate, normal rhythm. Absent: systolic murmur, diastolic murmur, rubs, gallop - GI/Abdominal GI/Abdominal exam: Present: soft, normal bowel sounds. Absent: distended, tenderness - Extremities Exam Extremities exam: Present: normal inspection, full ROM, normal capillary refill - Expanded Lower Extremity Exam Right Hip exam: Present: normal inspection Upper Leg exam: Present: normal inspection Knee exam: Present: tenderness, swelling, pain/laxity with valgus, pain/laxity with varus. Absent: abrasion, laceration, ecchymosis, deformity, crepidus, dislocation, erythema Ankle exam: Present: normal inspection Foot/Toe exam: Present: normal inspection - Back Exam Back exam: Present: normal inspection, CVA tenderness (L). Absent: CVA tenderness (R) - Neurological Exam Neurological exam: Present: alert, oriented X3, CN II-XII intact, normal gait - Psychiatric Psychiatric exam: Present: normal affect, normal mood - Skin Skin exam: Present: warm, dry, intact, normal color. Absent: rash ED Course Vital Signs 11/20/18 11/20/18 16:46 17:43 Temperature 98.0 F 98.0 F Pulse Rate 79 79 Respiratory 20 20 Rate Blood Pressure 137/69 Blood Pressure 137/69 [Right] O2 Sat by Pulse 96 96 Oximetry ED Lower Extremity MDM - Lab Data Result diagrams: 11/20/18 19:02 Critical care attestation.: If time is entered above; I have spent that time in minutes in the direct care of this critically ill patient, excluding procedure time. ED Disposition Clinical Impression: Strain of knee and leg, right, Arthritis of knee, Elevated INR Disposition: DC-01 TO HOME OR SELFCARE Is pt being admited?: No Does the pt Need Aspirin: No Condition: Stable Instructions: Knee Sprain (ED), Osteoarthritis (ED), Knee Pain (ED), Leg Sprain (ED), Elevated INR (ED), Knee Exercises (GEN) Additional Instructions: INR is elevated, although you are on Coumadin. Please hold her Coumadin for the next 2 doses before resuming. Please alert your cardiology office tomorrow and make sure that they are aware that her INR is currently at 4.3. Be sure to keep her cardiology appointment that she has scheduled on November 23 Prescriptions: traMADol [Ultram] 50 mg PO Q6HR PRN #20 tablet PRN Reason: Pain Referrals: KJ CARRASCO MD [Primary Care Provider] - 3-5 Days
[2018-11-20 22:11] VITALS: BP 134/70
== END 2018-11-20 22:11 | disposition home or self-care (01) ==
LOC: ED 15:29
DX: S86.911A Strain of unspecified muscle(s) and tendon(s) at lower leg level, right leg, initial encounter (principal); I11.0 Hypertensive heart disease with heart failure; K21.9 Gastro-esophageal reflux disease without esophagitis; E11.9 Type 2 diabetes mellitus without complications; F41.0 Panic disorder [episodic paroxysmal anxiety]; J45.909 Unspecified asthma, uncomplicated; G47.30 Sleep apnea, unspecified; Z91.013 Allergy to seafood; Z95.0 Presence of cardiac pacemaker; Z79.4 Long term (current) use of insulin; Z79.01 Long term (current) use of anticoagulants; W18.49XA Other slipping, tripping and stumbling without falling, initial encounter; Y93.89 Activity, other specified; Y92.59 Other trade areas as the place of occurrence of the external cause; Y99.8 Other external cause status
CPT/HCPCS: 36415; 85025; 85610; 85730; 99283

== ENCOUNTER 2019-08-18 19:22 | Emergency (ER) | payer MEDICARE ==
--- NOTE | 2019-08-18 19:38 | Emergency Department Report ---
Blank Doc - Documentation Documentation: 59-year-old female that presents with acute left leg pain and cramping. Denies any injuries. This initial assessment/diagnostic orders/clinical plan/treatment(s) is/are subject to change based on patient's health status, clinical progression and re- assessment by fellow clinical providers in the ED. Further treatment and workup at subsequent clinical providers discretion. Patient/guardians urged not to elope from the ED as their condition may be serious if not clinically assessed and managed. Initial orders include: 1- Patient sent to [facility] for further evaluation and treatment 2- labs 3- Doppler US
[2019-08-18 20:42] LABS: Basophils # (Auto) 0.1 K/mm3 (0.0-0.1); Eosinophils # (Auto) 0.3 K/mm3 (0.0-0.4); Eosinophils % (Auto) 4.6 % (0.0-4.3); Hematocrit 32.1 % (30.3-42.9); Hemoglobin 10.3 gm/dl (10.1-14.3); Lymphocytes # (Auto) 1.5 K/mm3 (1.2-5.4); Mean Corpuscular HGB Conc 32 % (30-34); Mean Corpuscular Volume 78 fl (79-97); Monocytes # (Auto) 0.5 K/mm3 (0.0-0.8); Monocytes % (Auto) 7.5 % (0.0-7.3); Platelet Count 230 K/mm3 (140-440); Red Blood Count 4.12 M/mm3 (3.65-5.03); Red Cell Distribution Width 17.1 % (13.2-15.2)
[2019-08-18 22:28] LABS: Calcium 9.1 mg/dL (8.4-10.2)
[2019-08-19] MEDS ORDERED: HYDROcodone/ACETAMINOPHEN 5-325 MG TAB PO ONE (01:31)
[2019-08-19] MEDS ORDERED: ONDANSETRON 4 MG ODT TAB PO ONE (01:31)
--- NOTE | 2019-08-19 02:18 | XRay Report ---
Left femur 3 views INDICATION: Left femur pain IMPRESSION: No acute findings. Signer Name: Owen Orona MD Signed: 08/19/2019 2:14 AM Workstation Name: [id number]
--- NOTE | 2019-08-19 02:30 | Emergency Department Report ---
ED General Adult HPI - General Chief complaint: Extremity Injury, Lower Stated complaint: LT LEG PAIN W/CRAMPING Time Seen by Provider: 08/18/19 19:37 Source: patient Mode of arrival: Ambulatory Limitations: No Limitations - History of Present Illness Initial comments: Patient presents to the emergency department with a chief complaint of in her left eye pain that started this evening. Patient states she was getting out of bed when she felt a pop in her left leg. Patient denies any shortness of breath, chest pain, abdominal pain, headache. -: Sudden Location: lower extremity Radiation: non-radiation Severity scale (0 -10): 3 Quality: aching Consistency: constant Improves with: rest Worsens with: movement Associated Symptoms: denies other symptoms Treatments Prior to Arrival: none - Related Data Home Medications Medication Instructions Recorded Confirmed Last Taken Albuterol Sulfate [Proair Hfa] 2 puff INHALATION Q4HR PRN 01/27/17 10/01/18 08/23/18 14:00 Lisinopril 10 mg PO DAILY 01/27/17 10/01/18 08/23/18 08:00 Oxybutynin Chloride [Oxybutynin 5 mg PO BID 01/27/17 10/01/18 08/23/18 08:00 Chloride ER] Insulin Glargine,Hum.rec.anlog 25 units SUB-Q BID 08/23/18 10/01/18 08/23/18 08:00 [Irmaagljeovany Olvera U-100] Potassium Chloride [Klor-Con 10] 10 meq PO BID 08/23/18 10/01/18 08/23/18 08:00 Sertraline HCl [Zoloft] 50 mg PO DAILY 08/23/18 10/01/18 08/23/18 08:00 Previous Rx's Medication Instructions Recorded Last Taken Type ALBUTEROL NEB's [Proventil 0.083% 2.5 mg IH Q4HRT PRN nebu 07/31/18 08/23/18 14:00 Rx NEBS] Furosemide [Lasix TAB] 40 mg PO DAILY #30 tablet 07/31/18 08/23/18 08:00 Rx HYDROcodone/APAP 5-325 [[place] 1 each PO Q6H PRN #60 tablet 07/31/18 08/18/18 13:00 Rx 5-325 mg TAB] Warfarin Sodium [Coumadin] 2.5 mg PO 6XW #1 tablet 07/31/18 08/23/18 14:00 Rx Warfarin [Coumadin] 5 mg PO QWEEK #1 tablet 07/31/18 08/16/18 08:00 Rx traMADoL [Ultram 50 MG tab] 50 mg PO Q6HR PRN #60 tablet 07/31/18 08/22/18 18:00 Rx Pantoprazole [Protonix TAB] 40 mg PO QDAY #30 tablet 08/25/18 Unknown Rx Metoprolol Xl [Metoprolol 50 mg PO QDAY #30 tablet 10/04/18 Unknown Rx SUCCINATE ER TAB] Prednisone [predniSONE 5 mg (6-Day 5 mg PO .TAPER #1 tab.ds.pk 10/04/18 Unknown Rx Pack, 21 Tabs)] traMADoL [Ultram] 50 mg PO Q6HR PRN #20 tablet 11/20/18 Unknown Rx Naproxen [Naprosyn] 500 mg PO BID #20 tablet 08/19/19 Unknown Rx Allergies Allergy/AdvReac Type Severity Reaction Status Date / Time seafood Allergy Rash Uncoded 02/07/17 09:01 ED Review of Systems ROS: Stated complaint: LT LEG PAIN W/CRAMPING Other details as noted in HPI Comment: All other systems reviewed and negative Constitutional: denies: chills, fever Eyes: denies: eye pain, eye discharge, vision change ENT: denies: ear pain, throat pain Respiratory: denies: cough, shortness of breath, wheezing Cardiovascular: denies: chest pain, palpitations Endocrine: no symptoms reported Gastrointestinal: denies: abdominal pain, nausea, diarrhea Genitourinary: denies: urgency, dysuria, discharge Musculoskeletal: denies: back pain, joint swelling, arthralgia Skin: denies: rash, lesions Neurological: denies: headache, weakness, paresthesias Psychiatric: denies: anxiety, depression Hematological/Lymphatic: denies: easy bleeding, easy bruising ED Past Medical Hx - Past Medical History Hx Hypertension: Yes Hx Congestive Heart Failure: Yes Hx Diabetes: Yes Hx GERD: Yes Hx Psychiatric Treatment: Yes (PANIC/ANXIETY) Hx Asthma: Yes Hx COPD: No Additional medical history: Sleep apnea. mitral annular ring insertion 11/15/2011. echo 04/2016: EF 55-60%, diastolic dysfunction, severe left atrium dilatation Restricted mitral valve angioplasty with secondary severe mitral stenosis on. pacemaker (07/31/18) - Surgical History Hx Open Heart Surgery: Yes (2009 and 2016) Hx Pacemaker: Yes (07/31/18) Additional Surgical History: plastic "ling" but she does not know what it is - Social History Smoking Status: Never Smoker Substance Use Type: None - Medications Home Medications: Home Medications Medication Instructions Recorded Confirmed Last Taken Type Albuterol Sulfate [Proair Hfa] 2 puff INHALATION Q4HR PRN 01/27/17 10/01/18 08/23/18 14:00 History Lisinopril 10 mg PO DAILY 01/27/17 10/01/18 08/23/18 08:00 History Oxybutynin Chloride [Oxybutynin 5 mg PO BID 01/27/17 10/01/18 08/23/18 08:00 History Chloride ER] ALBUTEROL NEB's [Proventil 0.083% 2.5 mg IH Q4HRT PRN nebu 07/31/18 10/01/18 08/23/18 14:00 Rx NEBS] Furosemide [Lasix TAB] 40 mg PO DAILY #30 tablet 07/31/18 10/01/18 08/23/18 08:00 Rx HYDROcodone/APAP 5-325 [[place] 1 each PO Q6H PRN #60 tablet 07/31/18 10/01/18 08/18/18 13:00 Rx 5-325 mg TAB] Warfarin Sodium [Coumadin] 2.5 mg PO 6XW #1 tablet 07/31/18 10/01/18 08/23/18 14:00 Rx Warfarin [Coumadin] 5 mg PO QWEEK #1 tablet 07/31/18 10/01/18 08/16/18 08:00 Rx traMADoL [Ultram 50 MG tab] 50 mg PO Q6HR PRN #60 tablet 07/31/18 10/01/18 08/22/18 18:00 Rx Insulin Glargine,Hum.rec.anlog 25 units SUB-Q BID 08/23/18 10/01/18 08/23/18 08:00 History [Basaglar Kwikpen U-100] Potassium Chloride [Klor-Con 10] 10 meq PO BID 08/23/18 10/01/18 08/23/18 08:00 History Sertraline HCl [Zoloft] 50 mg PO DAILY 08/23/18 10/01/18 08/23/18 08:00 History Pantoprazole [Protonix TAB] 40 mg PO QDAY #30 tablet 08/25/18 10/01/18 Unknown Rx Metoprolol Xl [Metoprolol 50 mg PO QDAY #30 tablet 10/04/18 Unknown Rx SUCCINATE ER TAB] Prednisone [predniSONE 5 mg (6-Day 5 mg PO .TAPER #1 tab.ds.pk 10/04/18 Unknown Rx Pack, 21 Tabs)] traMADoL [Ultram] 50 mg PO Q6HR PRN #20 tablet 11/20/18 Unknown Rx Naproxen [Naprosyn] 500 mg PO BID #20 tablet 08/19/19 Unknown Rx ED Physical Exam - General Limitations: No Limitations General appearance: alert, in no apparent distress - Head Head exam: Present: atraumatic, normocephalic - Eye Eye exam: Present: normal appearance, PERRL, EOMI - ENT ENT exam: Present: mucous membranes moist - Neck Neck exam: Present: normal inspection - Respiratory Respiratory exam: Present: normal lung sounds bilaterally. Absent: respiratory distress - Cardiovascular Cardiovascular Exam: Present: regular rate, normal rhythm. Absent: systolic murmur, diastolic murmur, rubs, gallop - GI/Abdominal GI/Abdominal exam: Present: soft, normal bowel sounds. Absent: distended, tenderness - Extremities Exam Extremities exam: Present: other (patient is tender to palpation along the gracilis muscle left leg) - Back Exam Back exam: Present: normal inspection - Neurological Exam Neurological exam: Present: alert, oriented X3, CN II-XII intact. Absent: motor sensory deficit - Psychiatric Psychiatric exam: Present: normal affect, normal mood - Skin Skin exam: Present: warm, dry, intact, normal color. Absent: rash ED Course Vital Signs 08/18/19 19:33 Temperature 98.2 F Pulse Rate 76 Respiratory 12 Rate Blood Pressure 152/75 O2 Sat by Pulse 97 Oximetry ED Medical Decision Making - Lab Data Result diagrams: 08/18/19 20:24 08/18/19 20:24 Lab Results 08/18/19 08/18/19 08/18/19 Range/Units 19:48 20:10 20:24 WBC 6.9 (4.5-11.0) K/mm3 RBC 4.12 (3.65-5.03) M/mm3 Hgb 10.3 (10.1-14.3) gm/dl Hct 32.1 (30.3-42.9) % MCV 78 L (79-97) fl MCH 25 L (28-32) pg MCHC 32 (30-34) % RDW 17.1 H (13.2-15.2) % Plt Count 230 (140-440) K/mm3 Lymph % (Auto) 21.0 (13.4-35.0) % [place] % (Auto) 7.5 H (0.0-7.3) % Eos % (Auto) 4.6 H (0.0-4.3) % Baso % (Auto) 1.0 (0.0-1.8) % Lymph # 1.5 (1.2-5.4) K/mm3 Henderson # 0.5 (0.0-0.8) K/mm3 Eos # 0.3 (0.0-0.4) K/mm3 Baso # 0.1 (0.0-0.1) K/mm3 Seg Neutrophils % 65.9 (40.0-70.0) % Seg Neutrophils # 4.6 (1.8-7.7) K/mm3 Sodium (137-145) mmol/L Potassium (3.6-5.0) mmol/L Chloride (98-107) mmol/L Carbon Dioxide (22-30) mmol/L Anion Gap mmol/L BUN (7-17) mg/dL Creatinine (0.7-1.2) mg/dL Estimated GFR ml/min BUN/Creatinine Ratio % Glucose (65-100) mg/dL POC Glucose < 40 L 72 (70-105) Calcium (8.4-10.2) mg/dL 08/18/19 Range/Units 20:24 WBC (4.5-11.0) K/mm3 RBC (3.65-5.03) M/mm3 Hgb (10.1-14.3) gm/dl Hct (30.3-42.9) % MCV (79-97) fl MCH (28-32) pg MCHC (30-34) % RDW (13.2-15.2) % Plt Count (140-440) K/mm3 Lymph % (Auto) (13.4-35.0) % Henderson % (Auto) (0.0-7.3) % Eos % (Auto) (0.0-4.3) % Baso % (Auto) (0.0-1.8) % Lymph # (1.2-5.4) K/mm3 [place] # (0.0-0.8) K/mm3 Eos # (0.0-0.4) K/mm3 Baso # (0.0-0.1) K/mm3 Seg Neutrophils % (40.0-70.0) % Seg Neutrophils # (1.8-7.7) K/mm3 Sodium 139 (137-145) mmol/L Potassium 4.1 (3.6-5.0) mmol/L Chloride 100.6 (98-107) mmol/L Carbon Dioxide 25 (22-30) mmol/L Anion Gap 18 mmol/L BUN 30 H (7-17) mg/dL Creatinine 1.0 (0.7-1.2) mg/dL Estimated GFR 57 ml/min BUN/Creatinine Ratio 30 % Glucose 101 H (65-100) mg/dL POC Glucose (70-105) Calcium 9.1 (8.4-10.2) mg/dL - Radiology Data Radiology results: report reviewed - Medical Decision Making Discussed results with patient Critical care attestation.: If time is entered above; I have spent that time in minutes in the direct care of this critically ill patient, excluding procedure time. ED Disposition Clinical Impression: Muscle strain of lower extremity Disposition: - TO HOME OR SELFCARE Is pt being admited?: No Does the pt Need Aspirin: No Condition: Stable Instructions: Muscle Strain (ED) Additional Instructions: return if worse Referrals: [facility] [Provider Group] - 3-5 Days [facility] [Provider Group] - 3-5 Days Time of Disposition: 02:34
[2019-08-19 02:51] VITALS: BP 128/76
== END 2019-08-19 03:30 | disposition home or self-care (01) ==
LOC: ED 19:22
DX: S86.912A Strain of unspecified muscle(s) and tendon(s) at lower leg level, left leg, initial encounter (principal); I11.0 Hypertensive heart disease with heart failure; I50.9 Heart failure, unspecified; E11.9 Type 2 diabetes mellitus without complications; K21.9 Gastro-esophageal reflux disease without esophagitis; F41.9 Anxiety disorder, unspecified; J45.909 Unspecified asthma, uncomplicated; Z95.818 Presence of other cardiac implants and grafts; Z79.899 Other long term (current) drug therapy; Z91.013 Allergy to seafood; X58.XXXA Exposure to other specified factors, initial encounter; Y93.89 Activity, other specified; Y92.89 Other specified places as the place of occurrence of the external cause; Y99.8 Other external cause status
CPT/HCPCS: 36415; 80048; 82962; 85025; Q0162